=== PATIENT | male | born 1975 | race Caucasian/White ===

== ENCOUNTER 2024-03-28 03:08 | Inpatient (IN) | payer MEDICAID, SELFPAY ==
[2024-03-28] VITALS (24 sets, daily range): BP systolic 104–131; BP diastolic 64–109; PULSE 51–103; RESP 12–23; TEMP 36.3–36.6; O2SAT 90–100; BMI 37.1
--- NOTE | 2024-03-28 03:15 | XRR_ITS ---
PROCEDURE INFORMATION: Exam: XR Chest Exam date and time: 03/28/2024 3:26 AM Age: 48 years old Clinical indication: Pain; Cough and shortness of breath; Chest pressure; Patient HX: C/O chest discomfort with cougn and SOB. Bilateral lower ext swelling. ; Additional info: Cp TECHNIQUE: Imaging protocol: Radiologic exam of the chest. Views: 1 view. COMPARISON: CR XR ribs BI mn 4V w [id number] [id number] 03/23/2020 12:02 PM FINDINGS: Lungs: Right basilar opacity, likely a combination of atelectasis and infection. The left lung is clear. Pleural spaces: Large right pleural effusion. Heart/Mediastinum: No cardiomegaly. Bones/joints: Unremarkable. XR/XR chest 1V portable [id number] IMPRESSION: 1. Large right pleural effusion. 2. Right basilar opacity, likely a combination of atelectasis and infection.
--- NOTE | 2024-03-28 03:18 | ECG_ITS ---
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 Measurements Intervals [place] Rate: 95 P: 79 MI: 180 QRS: 110 QRSD: 83 T: 10 QT: 366 QTc: 462 Interpretive Statements SINUS RHYTHM POSSIBLE RIGHT VENTRICULAR HYPERTROPHY [SOME/ALL OF: PROMINENT R IN V1, LATE TRANSITION, RAD, LANG, SSS] ANTEROSEPTAL MYOCARDIAL INFARCTION , OF INDETERMINATE AGE [40+ ms Q WAVE IN V1-V4] No previous ECG available for comparison Electronically Signed On 03-28-2024 22:33:17 EMERGENCY SPECIALIST by Dominique Nielson M.D. [email or web address]
--- NOTE | 2024-03-28 03:24 | W.ED.SOB ---
HPI - SOB/Dyspnea General: Chief Complaint: Shortness of Breath/Dyspnea Stated Complaint: SOB feet extremly swollen Time Seen by Provider: 03/28/24 03:11 History of Present Illness: HPI Narrative: Patient presents to the ER with worsening shortness of breath, newly diagnosed CHF as of this year, is on Bumex 2 mg twice a day, Lasix 40 mg daily along with potassium supplementation. Patient has been managed by his family practice doctor is never seen a real estate underwriter nor had an echocardiogram. Patient has been going downhill for several weeks but just got extremely short of breath tonight where he could not lay flat and had a hard time catching his breath while he was even sitting up. Patient also states he has bilateral lower extremity edema but it has been worse than it is currently. Patient denies any chest pain. 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 He is also drinks a lot of alcohol per family Related Data Home Medications Medication Instructions Recorded Confirmed bumetanide 2 mg tablet 2 mg PO BID 03/28/24 03/28/24 carvedilol 6.25 mg tablet 6.25 mg PO BID 03/28/24 03/28/24 furosemide 40 mg tablet (Lasix) 40 mg PO QAM 03/28/24 03/28/24 potassium chloride 10 mEq 10 meq PO DAILY 03/28/24 03/28/24 tablet,extended release Allergies Allergy/AdvReac Type Severity Reaction Status Date / Time No Known Allergies Allergy Verified 03/28/24 04:15 Review of Systems General: Reports: 10 or more systems reviewed and unremarkable except in HPI and below PFSH ED PFSH: Medical History (Updated 03/28/24 @ 16:28 by Tamika Rodas MD) CHF (congestive heart failure) Family History (Updated 03/28/24 @ 05:42 by Wilda Mera MD) Other CAD (coronary artery disease) Social History (Updated 03/28/24 @ 05:43 by Wilda Mera MD) Smoking and tobacco/nicotine status: current every day tobacco/nicotine user Alcohol intake: current Physical Exam Const: COMMON NORMALS: no acute distress, average body habitus, patient oriented x3, no limitations, healthy appearing, alert and well nourished HENMT: COMMON NORMALS: normocephalic, atraumatic, hearing grossly normal bilaterally, external ears normal, Normal external nose present and moist oral mucous membranes HEAD & SCALP: normocephalic and atraumatic NOSE: Normal external nose present EXTERNAL EAR: Yes external ears normal Neck/C-Spine: COMMON NORMALS: full ROM, no lymphadenopathy, supple, no meningeal signs, no JVD and Thyroid normal THYROID: Thyroid normal Chest: COMMONS NORMALS: normal inspection of the chest and normal palpation of entire chest wall Resp: COMMON NORMALS: normal respiratory effort, No retractions and No use of accessory muscles; negative for clear to auscultation bilaterally (Decreased breath sounds bilaterally) AUSCULTATION: not clear to auscultation bilaterally (Decreased breath sounds bilaterally) Cardio: COMMON NORMALS: no JVD, regular rate, regular rhythm, S1 normal heart sound present, S2 normal heart sound present, No gallops present (Cardio), No clicks present (Cardio), No murmurs present (Cardio) and No rub (Cardio) RATE: regular rate RHYTHM: regular rhythm HEART SOUNDS: S1 normal heart sound present and S2 normal heart sound present GI: COMMON NORMALS: Normal to inspection, nondistended, normoactive bowel sounds present, Soft to palpation, non-tender, No hepatosplenomegaly present and no masses PALPATION: Yes Soft to palpation and Yes No hepatosplenomegaly present Extremity: NARRATIVE EXTREMITY EXAM: 1+ pitting edema bilateral lower extremities Neuro: COMMON NORMALS: patient oriented x3 SENSORIUM/ORIENTATION: Yes alert MENINGEAL SIGNS: Yes no meningeal signs Course Vital Signs: Vital signs: Vital Signs Temperature 97.8 F 04/01/24 08:18 Pulse Rate 113 H 04/01/24 09:02 Respiratory Rate 18 04/01/24 09:02 Blood Pressure 115/82 04/01/24 08:18 Pulse Oximetry 97 04/01/24 09:02 Oxygen Delivery Me thod Nasal Cannula 04/01/24 09:02 Oxygen Flow Rate 2 04/01/24 09:02 Fraction of Inspir ed Oxygen 3.5 03/28/24 08:37 MDM - SOB/Dyspnea Medical Decision Making Chest x-ray showed a right large pleural effusion with right basilar opacity, chest abdomen pelvis CT scan with contrast showed no PE, large right pleural effusion with mild pulmonary edema, with near complete collapse of right lower middle lobes. CBC and ABG was essentially unremarkable, patient's BUN/creatinine is 43 and 1.6, phosphorus and magnesium total bilirubin 5.3, 2.6, 2.7, proBNP 11,400, ethyl alcohol less than 10. These results was discussed with the patient and family members. Patient will be placed inpatient for further evaluation and treatment. Dr. Mera consulted and agreed with admission and treatment. Lab Data 04/01/24 05:40 04/01/24 05:40 Labs/Radiology: Radiology Impressions Chest/Abdomen/Pelvis CT 03/28/24 04:20 IMPRESSION: 1. No pulmonary embolism. 2. Large right pleural effusion with mild pulmonary edema. 3. Near complete collapse of the right lower and middle lobes. IMPRESSION: Cirrhotic liver morphology with sequela of portal hypertension including splenomegaly and moderate volume ascites. Paracentesis Ultrasound 03/29/24 06:00 IMPRESSION: Uncomplicated paracentesis yielding 3000 ml of peritoneal fluid. Thoracentesis Ultrasound 03/31/24 07:00 IMPRESSION: 1. Uncomplicated ultrasound-guided RIGHT thoracentesis. 2. Removal of 1000 cc 3. No pneumothorax on the post thoracentesis radiograph Chest X-Ray 03/31/24 14:45 IMPRESSION: 1. No pneumothorax post RIGHT thoracentesis. Improved RIGHT pleural effusion. 2. Persistent volume loss RIGHT lung with RIGHT lower lobe atelectasis Laboratory Results WBC 8.47 10^3/uL (3.29-11.43) 03/28/24 03:40 RBC 5.83 10^6/uL (3.85-5.65) H 03/28/24 03:40 Hgb 15.90 g/dL (11.27-16.99) 03/28/24 03:40 Hct 51.0 % (37-53) 03/28/24 03:40 MCV 87.5 fl (82-101) 03/28/24 03:40 MCH 27.3 pg (27-33) 03/28/24 03:40 MCHC 31.2 g/dL (30-55) 03/28/24 03:40 RDW 17.8 % (12.1-15.1) H 03/28/24 03:40 Plt Count 332 10^3/cmm (157-399) 03/28/24 03:40 MPV 10.1 fL (7.4-10.4) 03/28/24 03:40 Neut % (Auto) 70.4 % 03/28/24 03:40 Lymph % (Auto) 17.9 % 03/28/24 03:40 Craig % (Auto) 10.0 % 03/28/24 03:40 Eos % (Auto) 0.9 % 03/28/24 03:40 Baso % (Auto) 0.2 % 03/28/24 03:40 Neut # (Auto) 5.95 10^3/uL (1.8-7.7) 03/28/24 03:40 Lymph # (Auto) 1.5 10^3/uL (0.8-4.8) 03/28/24 03:40 Craig # (Auto) 0.9 10^3/uL (0.2-0.9) 03/28/24 03:40 Eos # (Auto) 0.1 10^3/uL (0.0-0.8) 03/28/24 03:40 Baso # (Auto) 0.0 10^3/uL (0.0-0.1) 03/28/24 03:40 Nucleated RBC % (auto) 0 % 03/28/24 03:40 Nucleated RBCs # 0.0 /100WBC 03/28/24 03:40 D-Dimer 5.24 ug/mLFEU (0-0.59) H 03/28/24 03:40 Specimen Type Arterial 03/28/24 05:12 Sample Site Brachial, right 03/28/24 05:12 ABG pH 7.49 (7.35-7.45) H 03/28/24 05:12 ABG pCO2 33.4 mmHg (35-45) L 03/28/24 05:12 ABG pO2 118.0 mmHg (80.0-100.0) H 03/28/24 05:12 ABG HCO3 25.3 mmol/L (22-26) 03/28/24 05:12 ABG O2 Saturation > 99.1 03/28/24 05:12 ABG Base Excess 2.5 mmol/L (-2.0-2.0) H 03/28/24 05:12 Junaid Test N/a 03/28/24 05:12 A-a O2 Gradient Not Reportable 03/28/24 05:12 Hematocrit 47.8 % (42-52) 03/28/24 05:12 Hgb O2 Saturation 97.2 % (95-100) 03/28/24 05:12 Carboxyhemoglobin 1.6 %THgb (0.4-20.1) 03/28/24 05:12 Methemoglobin 0.7 % (0.4-1.5) 03/28/24 05:12 Total Hemoglobin 15.6 g/dL (14-18) 03/28/24 05:12 Sodium 135.0 mmol/L (131-143) 03/28/24 05:12 Potassium 3.9 mmol/L (3.5-5.0) 03/28/24 05:12 Glucose 113.0 mg/dL (70-115) 03/28/24 05:12 Ionized Calcium 1.1 mmol/L (1.1-1.4) 03/28/24 05:12 O2 Delivery Device Nc 03/28/24 05:12 O2 Liters/Min 2.0 % 03/28/24 05:12 Costumer ID Al 03/28/24 05:12 Sodium 140 mmol/L (136-145) 03/28/24 05:57 Potassium 4.9 mmol/L (3.5-5.1) 03/28/24 05:57 Chloride 97 mmol/L (98-107) L 03/28/24 05:57 Carbon Dioxide 26 mmol/L (22-29) 03/28/24 05:57 Anion Gap 21.9 (5-19) H 03/28/24 05:57 BUN 42 mg/dL (6-20) H 03/28/24 05:57 Creatinine 1.4 mg/dL (0.7-1.2) H 03/28/24 05:57 GFR Calculation 54.6 mL/min (90-130) L 03/28/24 05:57 Glucose 107 mg/dL (65-115) 03/28/24 05:57 Calculated Osmolality 301 mOsm/kg (285-295) H 03/28/24 05:57 Lactic Acid 2.1 mmol/L (0.5-2.2) 03/28/24 03:40 Lactic Acid (Sepsis) 3.0 mmol/L (0.5-2.2) H 03/28/24 06:55 Calcium 9.8 mg/dL (8.5-10.5) 03/28/24 05:57 Phosphorus 5.3 mg/dL (2.5-4.5) H 03/28/24 03:40 Magnesium 2.6 mg/dL (1.7-2.3) H 03/28/24 03:40 Total Bilirubin 2.7 mg/dL (0.15-1.2) H 03/28/24 03:40 AST 19 U/L (0-40) 03/28/24 03:40 ALT 22 U/L (0-41) 03/28/24 03:40 Alkaline Phosphatase 174 U/L (40-130) H 03/28/24 03:40 Troponin T Baseline 52 ng/L (0-15) H 03/28/24 03:40 Troponin T 120 Minute 44.13 ng/L (0-15) H 03/28/24 05:57 Delta Troponin T -7.87 ABS# (0-10) L 03/28/24 05:57 Troponin T Hi Sens 6Hr 27.44 ng/L (0-15) H 03/28/24 10:22 Troponin T Hi Sens 6Hr Delta -24.56 ng/L (0-12) L 03/28/24 10:22 NT-Pro-B Natriuret Pep 62623 pg/mL (0-125) H 03/28/24 03:40 NT-Pro-B Natriuret Pep Cancelled 03/28/24 03:40 Total Protein 6.4 g/dL (6.6-8.7) L 03/28/24 03:40 Albumin 3.7 g/dL (3.5-5.2) 03/28/24 03:40 Globulin 2.7 g/dL (1.3-4.6) 03/28/24 03:40 Vitamin B12 1394 pg/mL (232-1245) H 03/28/24 05:57 Procalcitonin 0.20 ng/mL (0-0.5) 03/28/24 03:40 TSH 4.28 uIU/mL (0.27-4.20) H 03/28/24 05:57 Urine Color Yellow (Yellow) 03/28/24 05:36 Urine Appearance Clear (CLEAR) 03/28/24 05:36 Urine pH 5.5 (5-7) 03/28/24 05:36 Ur Specific [place] 1.022 (1.005-1.030) 03/28/24 05:36 Urine Protein Negative (Negative) 03/28/24 05:36 Urine Glucose (UA) Negative (Normal) 03/28/24 05:36 Urine Ketones Negative (Negative) 03/28/24 05:36 Urine Blood Negative (Negative) 03/28/24 05:36 Urine Nitrate Negative (Negative) 03/28/24 05:36 Urine Bilirubin Negative (Negative) 03/28/24 05:36 Urine Urobilinogen 1.0 mg/dL (Negative) 03/28/24 05:36 Ur Leukocyte Esterase Negative (Negative) 03/28/24 05:36 Urine RBC 0-4 /hpf (0-2) H 03/28/24 05:36 Urine WBC 0-4 /hpf (0-5) H 03/28/24 05:36 Ur Squamous Epith Cells 0-4 /hpf (0-5) H 03/28/24 05:36 Amorphous Sediment Not Reportable 03/28/24 05:36 Urine Bacteria Trace /hpf (NONE) 03/28/24 05:36 Urine Opiates Screen Negative ng/mL (Negative) 03/28/24 05:36 Ur Barbiturates Screen Negative ng/mL (Negative) 03/28/24 05:36 Ur Phencyclidine Scrn Negative ng/mL (Negative) 03/28/24 05:36 Ur Amphetamines Screen Positive ng/mL (Negative) H 03/28/24 05:36 U Benzodiazepines Scrn Negative ng/mL (Negative) 03/28/24 05:36 Urine Cocaine Screen Negative ng/mL (Negative) 03/28/24 05:36 U Marijuana (THC) Screen Negative ng/mL (Negative) 03/28/24 05:36 Ethyl Alcohol < 10 mg/dL (0-10) 03/28/24 03:40 All radiology interpretation(s) finalized by discharge Discharge Plan Discharge Patient Disposition: Admitted As Inpatient Admit Provider: Wilda Mera Clinical Impression: Pleural effusion on right, CHF (congestive heart failure), Acute hypoxic respiratory failure, Acute kidney insufficiency Condition: Stable Coding Level of Care Code ED Director Of [employer] for [place]
[2024-03-28 03:47] LABS: Basophils % 0.2 %; Eosinophils # 0.1 10^3/uL (0.0-0.8); Eosinophils % 0.9 %; Lymphocytes # 1.5 10^3/uL (0.8-4.8); Lymphocytes % 17.9 %; Mean Corpuscular HGB Conc 31.2 g/dL (30-55); Mean Corpuscular Hemoglobin 27.3 pg (27-33); Mean Corpuscular Volume 87.5 fl (82-101); Mean Platelet Volume 10.1 fL (7.4-10.4); Monocytes # 0.9 10^3/uL (0.2-0.9); Neutrophils # 5.95 10^3/uL (1.8-7.7); Neutrophils % 70.4 %; Nucleated Red Blood Cells % 0 %; Platelet Count 332 10^3/cmm (157-399); Red Blood Count 5.83 10^6/uL (3.85-5.65); Red Cell Distribution Width 17.8 % (12.1-15.1); White Blood Count 8.47 10^3/uL (3.29-11.43)
[2024-03-28 04:10] LABS: Troponin(5th) Baseline 52 ng/L (0-15)
[2024-03-28 04:13] LABS: D Dimer 5.24 ug/mLFEU (0-0.59)
[2024-03-28 04:18] LABS: Alanine Aminotransferase 22 U/L (0-41); Albumin Level 3.7 g/dL (3.5-5.2); Alcohol Level < 10 mg/dL (0-10); Alkaline Phosphatase 174 U/L (40-130); Anion Gap 17.9 (5-19); Aspartate Amino Transferase 19 U/L (0-40); Blood Urea Nitrogen 43 mg/dL (6-20); Calcium 9.8 mg/dL (8.5-10.5); Carbon Dioxide 28 mmol/L (22-29); Chloride 95 mmol/L (98-107); Globulin 2.7 g/dL (1.3-4.6); Glomerular Filtration Rate 46.8 mL/min (90-130); Glucose 121 mg/dL (65-115); Magnesium 2.6 mg/dL (1.7-2.3); NT Pro B Type Natriuretic Pept 11400 pg/mL (0-125); Osmolality Calculated 294 mOsm/kg (285-295); Phosphorus 5.3 mg/dL (2.5-4.5); Potassium 4.9 mmol/L (3.5-5.1); Sodium 136 mmol/L (136-145); Total Bilirubin 2.7 mg/dL (0.15-1.2); Total Protein 6.4 g/dL (6.6-8.7)
--- NOTE | 2024-03-28 04:20 | CTR_ITS ---
PROCEDURE INFORMATION: Exam: CTA Chest With Contrast Exam date and time: 03/28/2024 4:27 AM Age: 48 years old Clinical indication: Abnormal findings; Abnormal lab test; Abnormal kidney function lab tests; Bloating; Abnormal diagnostic tests; Elevated d-dimer; Cough and shortness of breath; Patient HX: Cough with SOB and dimer of 5.24. RT pleural effusion. Willem with abd distention. ; Additional info: Shortness of breath, tachypnea, elevated d-dimer, ascites TECHNIQUE: Imaging protocol: Computed tomographic angiography of the chest with contrast. Exam focused on the arteries. 3D rendering (Not supervised by radiologist): MIP and/or 3D reconstructed images were created by the technologist. Radiation optimization: All CT scans at this facility use at least one of these dose optimization techniques: automated exposure control; mA and/or kV adjustment per patient size (includes targeted exams where dose is matched to clinical indication); or iterative reconstruction. Contrast material: OMNI 350; Contrast volume: 100 ml; Contrast route: INTRAVENOUS (IV); COMPARISON: CR (CHEST, ) 03/28/2024 3:26 AM RADIATION DOSE METRICS: Total DLP (mGy-cm): 1640.94 FINDINGS: Pulmonary arteries: Normal. No pulmonary emboli. Aorta: Unremarkable. No aortic aneurysm. No aortic dissection. Lungs: Near complete collapse of the right lower and middle lobes. Bilateral ground-glass opacities suggestive of edema. No focal consolidation. Pleural spaces: Large right pleural effusion. Heart: Cardiomegaly. Lymph nodes: Unremarkable. No enlarged lymph nodes. Bones/joints: Unremarkable. No acute fracture. Soft tissues: Unremarkable. PROCEDURE INFORMATION: Exam: CT Abdomen And Pelvis With Contrast Exam date and time: 03/28/2024 4:27 AM Age: 48 years old Clinical indication: Abnormal findings; Abnormal lab test; Abnormal kidney function lab tests; Bloating; Abnormal diagnostic tests; Elevated d-dimer; Cough and shortness of breath; Patient HX: Cough with SOB and dimer of 5.24. RT pleural effusion. Willem with abd distention. ; Additional info: Shortness of breath, tachypnea, elevated d-dimer, ascites TECHNIQUE: Imaging protocol: Computed tomography of the abdomen and pelvis with contrast. Radiation optimization: All CT scans at this facility use at least one of these dose optimization techniques: automated exposure control; mA and/or kV adjustment per patient size (includes targeted exams where dose is matched to clinical indication); or iterative reconstruction. Contrast material: OMNI 350; Contrast volume: 100 ml; Contrast route: INTRAVENOUS (IV); COMPARISON: CR (CHEST, ) 03/28/2024 3:26 AM RADIATION DOSE METRICS: Total DLP (mGy-cm): 1640.94 FINDINGS: Liver: Mildly nodular hepatic contour, suggestive of cirrhosis. Gallbladder and biliary ducts: No calcified stones or ductal dilation. Pancreas: No ductal dilation. Spleen: Splenomegaly measuring 15.2 cm. Adrenal glands: Unremarkable. Kidneys and ureters: No hydronephrosis. Stomach and bowel: No obstruction. No mucosal thickening. Appendix: No evidence of appendicitis. Intraperitoneal space: Moderate volume ascites. Vasculature: Unremarkable. Lymph nodes: No enlarged lymph nodes. Urinary bladder: Unremarkable as visualized. Reproductive: Unremarkable as visualized. Bones/joints: Unremarkable. No acute fracture. Soft tissues: Moderate body wall edema. CT/CT angio chest w abd pel w con IMPRESSION: 1. No pulmonary embolism. 2. Large right pleural effusion with mild pulmonary edema. 3. Near complete collapse of the right lower and middle lobes. IMPRESSION: Cirrhotic liver morphology with sequela of portal hypertension including splenomegaly and moderate volume ascites.
--- NOTE | 2024-03-28 04:21 | USCV_ITS ---
Alfred Spencer Age: 48 Gender: M : 1975 Exam Date: 03/28/2024 09:28 Ordering Phys: Wilda Mera MD Technologist: Urban Elaine [place] [facility] [place]: chf BP: 116 / 83 HR: 89 Rhythm: Sinus Technical Quality: Adequate MEASUREMENTS (Male / Female) Normal Values 2D ECHO LV Diastolic Diameter PLAX 5.5 cm 4.2 - 5.9 / 3.9 - 5.3 cm IVS Diastolic Thickness 1.3 cm 0.6 - 1.0 / 0.6 - 0.9 cm IVS Systolic Thickness 1.4 cm LVPW Diastolic Thickness 1.3 cm 0.6 - 1.0 / 0.6 - 0.9 cm LVPW Systolic Thickness 1.7 cm LVOT Diameter 2.1 cm LV Ejection Fraction 2D Teich 23.4 % LV Ejection Fraction MOD 4C 30.5 % LV Ejection Fraction MOD 2C 21.1 % LV Ejection Fraction 2C AL 21.4 % LA Diameter 4.4 cm RA Systolic Volume 4C AL 77.0 ml RA Systolic Volume 4C MOD 78.0 ml LA Sys Volume AL 91.2 cm cubed LA Sys Volume Index AL 35.0 cm cubed/m squared Aorta at Sinotubular Diameter 1.9 cm IVC Diameter 2.0 cm M-MODE LA Ao Ratio MM 1.7 AV Cusp Separation MM 2.1 cm DOPPLER AV Peak Velocity 125.0 cm/s LVOT Peak Velocity 79.0 cm/s AV Area Cont Eq vti 1.8 cm squared AV Area Cont Eq pk 2.2 cm squared MV Peak Velocity 114.0 cm/s MV Area PHT 8.2 cm squared Mitral E to A Ratio 1.9 TV Peak Velocity 253.0 cm/s TR Peak Velocity 265.5 cm/s TR Peak Gradient 28.2 mmHg TR Mean Velocity 199.0 cm/s TR Mean Gradient 17.8 mmHg TR Velocity Time Integral 69.9 cm PV Peak Velocity 75.0 cm/s RV Ejection Time 0.3 s FINDINGS Left Ventricle Severe diffuse hypokinesia of the left ventricle with an ejection fraction of 25%. Moderately dilated LV cavity Right Ventricle Normal right ventricular size and systolic function. Right Atrium Moderately increased right atrial size. Left Atrium Mildly increased left atrial size. Mitral Valve Moderate mitral valve regurgitation. Aortic Valve Thickened aortic valve. Tricuspid Valve Moderate tricuspid valve regurgitation. The pulmonary artery pressure estimated to be in the normal range. However this could be misleading because of poor Doppler signals. Pulmonic Valve Pulmonic valve not well visualized. Pericardium No pericardial effusion. Aorta Normal aortic annulus size. IVC Mildly dilated IVC. CONCLUSIONS Severe diffuse hypokinesia of the left ventricle with an ejection fraction of 25%. Moderately dilated LV cavity. Moderate biatrial enlargement. Moderate mitral valve regurgitation. Thickened aortic valve. Moderate tricuspid valve regurgitation. The pulmonary artery pressure estimated to be in the normal range. However this could be misleading because of poor Doppler signals. There is no pericardial effusion. No similar previous studies are available for comparison Dr Dominique Nielson MD [facility] (Electronically Signed) Final Date: 28 March 2024 19:17 S
[2024-03-28] MEDS: iohexol 350 mg/mL 500 mL Btl (per mL) IV (04:40)
[2024-03-28] MEDS: FUROsemide 10 mg/mL SDV 10mL 60 MG IVP (04:45)
[2024-03-28] MEDS: heparin 5,000 unit/mL INJ 1 mL 5000 UNIT SUBCUT ×2 (04:47→16:52)
[2024-03-28 05:16] LABS: Lactic Sepsis W/Reflex 2.1 mmol/L (0.5-2.2)
[2024-03-28 05:24] LABS: ABG PCO2 33.4 mmHg (35-45); ABG PH Result 7.49 (7.35-7.45); Arterial Blood Gas Hematocrit 47.8 % (42-52); Base Excess ABG 2.5 mmol/L (-2.0-2.0); Blood Gas Operator Identificat SAM; Blood Gas Sample Site Brachial, right; Blood Gas Sample Type Arterial; Carboxyhemoglobin 1.6 %THgb (0.4-20.1); HCO3 ABG 25.3 mmol/L (22-26); HGB O2 Sat 97.2 % (95-100); Ionized Calcium Level - ABG 1.1 mmol/L (1.1-1.4); Methemoglobin 0.7 % (0.4-1.5); Oxygen Device NC; Oxygen Saturation ABG > 99.1; Potassium Level - ABG 3.9 mmol/L (3.5-5.0); Total Hemoglobin 15.6 g/dL (14-18)
--- NOTE | 2024-03-28 05:38 | P.HP_ITS ---
Providers/Chief Complaint 2 Primary Care Provider: RICHARD Guzman Chief Complaint: SOB feet extreamly swollen History of Present Illness Alfred Spencer is a 48 year old male With recent diagnosis of CHF, has been taking Lasix without any good response, started taking Bumex, has history of alcoholism, smoking cigars, not endorsing rigors from drugs, presented with worsening orthopnea PND weight gain and shortness of breath. Patient is not endorsing any chest pain, nausea, vomiting. He is endorsing severe shortness of breath at rest and on exertion. He has gained at least 30 pounds. Last alcohol drink was on this Friday when he was playing pool. Patient is stating that he was drinking heavily 8 beers a day with 1 pint of whiskey that he was finishing a week. Never had an angiogram no family history of coronary disease SC or CHF. Review of Systems 2 Const: Denies: fever(s) Eyes: Denies: change in vision ENMT: Denies: throat pain Card: Reports: swelling of feet/ankles; Denies: chest pain Resp: Reports: dyspnea GI: Reports: nausea; Denies: abdominal pain Medications/Allergies Allergies Allergy/AdvReac Type Severity Reaction Status Date / Time No Known Allergies Allergy Verified 03/28/24 04:15 PFSH Acute 2 PFSH: Medical History (Updated 03/28/24 @ 05:42 by Wilda Mera MD) CHF (congestive heart failure) Family History (Updated 03/28/24 @ 05:42 by Wilda Mera MD) Other CAD (coronary artery disease) Social History (Updated 03/28/24 @ 05:43 by Wilda Mera MD) Smoking and tobacco/nicotine status: current every day tobacco/nicotine user Alcohol intake: current Vitals/I&O/Wt Last Vital Signs Temp 97.4 F L 03/28/24 03:49 Pulse 91 03/28/24 04:15 Resp 16 03/28/24 04:15 BP 107/89 03/28/24 04:30 Pulse Ox 94 03/28/24 04:15 O2 Del Method Nasal Cannula 03/28/24 03:45 O2 Flow Rate 2 03/28/24 03:45 Weight last 48 hrs Weight 122.924 kg Physical Exam 2 Narrative: Sign of fluid overload Anasarca GCS 15 Currently on 2 L Hypertensive Distended abdomen No send with 3+ edema Lower extremities are cool to touch S1, S2 No acute chest pain Endorsing orthopnea PND No audible stridor or wheezing Positive sign of fluid overload Data 03/28/24 03:40 03/28/24 03:40 A&P Assessment and plan (1) CHF (congestive heart failure): Qualifiers: Heart failure chronicity: acute Heart failure type: unspecified Qualified Code(s): I50.9 - Heart failure, unspecified (2) Acute kidney insufficiency: (3) Pleural effusion on right: (4) Acute hypoxic respiratory failure: Plan New onset of CHF Patient will need an angiogram once he is euvolemic This seems to be induced by alcohol, not endorsing history of methamphetamine or cocaine Will check drug screen check TSH and B12 Patient will need outpatient cardiology follow-up as well I will start him on high-dose of Bumex 2 mg IV every 8 hours with BMP every 12 hours and potassium supplementation Acute hypoxia related to CHF Pleural effusion A-fib close patient has not improved with diuresis he may need thoracentesis Hypertension: Patient will need optimization of antihypertensive regimen Full code Cardiac diet DVT prophylaxis: Heparin Abnormal D-dimer CT chest ruled out PE Attestations 2 Medical Necessity Statement*: Anticipating discharge within 48 hours Diagnoses CHF (congestive heart failure) I50.9 Heart failure chronicity: acute Heart failure type: unspecified Acute kidney insufficiency N28.9 Pleural effusion on right J90 Acute hypoxic respiratory failure J96.01
[2024-03-28 06:21] LABS: Troponin 5 2HR 44.13 ng/L (0-15)
[2024-03-28 06:23] LABS: Amphetamines Screen Urine Positive (Negative); Barbiturates Screen Urine Negative (Negative); Benzodiazepines Screen Urine Negative (Negative); Cocaine Screen Urine Negative (Negative); Opiate Screen Urine Negative (Negative); PCP Screen Urine Negative (Negative); THC Screen Urine Negative (Negative)
[2024-03-28 06:31] LABS: Troponin 5 2HR Delta -7.87 ABS# (0-10)
[2024-03-28 06:36] LABS: Bilirubin Urine Negative (Negative); Blood Urine Negative (Negative); Glucose Urine UA Negative (Normal); Ketones Urine Negative (Negative); Leukocyte Esterase Urine Negative (Negative); Nitrate Urine Negative (Negative); Protein Urine Negative (Negative); Specific Gravity, Urine 1.022 (1.005-1.030); Urine Appearance Clear (CLEAR); Urine Color Yellow (Yellow); pH Urine 5.5 (5-7)
[2024-03-28 06:43] LABS: Anion Gap 21.9 (5-19); Blood Urea Nitrogen 42 mg/dL (6-20); Calcium 9.8 mg/dL (8.5-10.5); Carbon Dioxide 26 mmol/L (22-29); Chloride 97 mmol/L (98-107); Glomerular Filtration Rate 54.6 mL/min (90-130); Glucose 107 mg/dL (65-115); Osmolality Calculated 301 mOsm/kg (285-295); Potassium 4.9 mmol/L (3.5-5.1); Sodium 140 mmol/L (136-145); Thyroid Stimulating Hormone 4.28 uIU/mL (0.27-4.20); Vitamin B12 1394 pg/mL (232-1245)
[2024-03-28 06:46] LABS: Add Urine Microscopic? YES; Bacteria Urine TRACE /hpf; RBC Urine 0-4 /hpf (0-2); Squamous Epithelial Cell Urine 0-4 /hpf (0-5); UA Manual Slide Review YES; WBC Urine 0-4 /hpf (0-5)
[2024-03-28 06:47] LABS: Reflex Lactate Order REFLEX LACTIC ORDERD
--- NOTE | 2024-03-28 07:15 | PC.NURSE ---
Report called to medical facilities section director Debbie at 0715 by this nurse.
--- NOTE | 2024-03-28 07:30 | PC.PHAR ---
Pt states sister Radha takes care of his medications. She was here with them but took with her when she left. She is not answering her phone currently. Pt states takes Carvedilol, Potassium Chloride, Lasix, Bumetanide, and something for cough. Will follow up with drug strength and dosage as soon as I make contact with Radha.
[2024-03-28] MEDS: potassium chloride ER 20 mEq Tablet 40 MEQ PO (09:14)
[2024-03-28] MEDS: sennosides-docusate Tablet 1 TAB PO (09:15)
--- NOTE | 2024-03-28 09:19 | ECG_ITS ---
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 Measurements Intervals [place] Rate: 89 P: 70 HI: 181 QRS: 99 QRSD: 89 T: -64 QT: 364 QTc: 444 Interpretive Statements SINUS RHYTHM LEFT ATRIAL ENLARGEMENT [-0.15mV P-WAVE IN V1/V2] BORDERLINE RIGHT AXIS DEVIATION [QRS AXIS > 90] ANTEROSEPTAL MYOCARDIAL INFARCTION , OF INDETERMINATE AGE [40+ ms Q WAVE IN V1-V4] Compared to ECG 03/28/2024 03:18:02 No significant changes Electronically Signed On 03-28-2024 22:41:51 RIFLE CASE REPAIRER by Dominique Nielson M.D. [email or web address]
[2024-03-28 11:00] LABS: Troponin 5 6HR 27.44 ng/L (0-15)
[2024-03-28 11:01] LABS: Troponin 5 6HR Delta -24.56 ng/L (0-12)
[2024-03-28] MEDS: bumetanide 0.25 mg/mL SDV 4 mL 2 MG IVP ×2 (14:09→21:11)
--- NOTE | 2024-03-28 14:56 | PC.NURSE ---
upon assessing patient, Scotum is really swollen. Patient stated scrotum has been swollen for a week.
--- NOTE | 2024-03-28 16:25 | P.PN_ITS ---
Subjective 2 Subjective: Patient is surprised to learn that has cirrhosis. States that he stopped drinking 1 week ago. States that he has been feeling poorly over the last 2 to 3 months. He has had increasing anasarca, which started initially with lower extremity swelling. He borrowed water pills from his friends and initially did okay, however over the last 2 to 3 weeks he continued to have persistent swelling with therefore visited with primary care physician to get a prescription. He was diagnosed with CHF presumptively. Has not had an echocardiogram to date. CT of the abdomen and pelvis here today is showing liver cirrhosis. Medications: Reviewed: Yes Vitals/I&O/Wt Last Vital Signs Temp 97.8 F 03/28/24 16:03 Pulse 103 H 03/28/24 16:03 Resp 18 03/28/24 16:03 BP 119/64 03/28/24 16:03 Pulse Ox 99 03/28/24 16:03 O2 Del Method Nasal Cannula 03/28/24 16:03 O2 Flow Rate 2 03/28/24 03:45 FiO2 3.5 03/28/24 08:37 03/28/24 03/28/24 03/28/24 06:59 14:59 22:59 Intake Total 1200 / 1200 Output Total 150 / 150 Balance 1200 / 1200 -150 / 1050 Weight last 48 hrs Weight 127.658 kg Weight 122.924 kg Physical Exam 2 Narrative: General: No acute distress, AO x3 HEENT: PERRLA, pupils bilaterally equal and reactive, pallors not present Chest: Reduced air entry onto the right lung. CVS: S1-S2 regular, no murmurs, no tachycardia, no gallops, no rubs Abdomen: Soft, nontender, no organomegaly, bowel sounds present Neuro: No focal deficits, no facial deformity, AO x3, power 5/5 in all limbs Extremities: Generalized anasarca Data 03/28/24 03:40 03/28/24 05:57 Micro: Microbiology 03/28/24 05:57 Blood Culture - Preliminary Blood SPECIMEN COLLECTED 03/28/24 05:57 Blood Culture - Preliminary Blood SPECIMEN COLLECTED Other data: CT/CT angio chest w abd pel w con IMPRESSION: 1. No pulmonary embolism. 2. Large right pleural effusion with mild pulmonary edema. 3. Near complete collapse of the right lower and middle lobes. IMPRESSION: Cirrhotic liver morphology with sequela of portal hypertension including splenomegaly and moderate volume ascites. A&P Assessment and plan (1) Acute kidney insufficiency: (2) Pleural effusion on right: (3) Acute hypoxic respiratory failure: (4) Liver cirrhosis: (5) Anasarca: Plan New onset of CHF Patient will need an angiogram once he is euvolemic This seems to be induced by alcohol, not endorsing history of methamphetamine or cocaine Will check drug screen check TSH and B12 Patient will need outpatient cardiology follow-up as well I will start him on high-dose of Bumex 2 mg IV every 8 hours with BMP every 12 hours and potassium supplementation Acute hypoxia related to CHF Pleural effusion A-fib close patient has not improved with diuresis he may need thoracentesis Hypertension: Patient will need optimization of antihypertensive regimen Full code Cardiac diet DVT prophylaxis: Heparin Abnormal D-dimer CT chest ruled out PE 03/28/2024 Patient presenting with anasarca of the last 2 to 3 months, more acutely worsened over the past 2 to 3 weeks. Presumptively he has received a diagnosis of CHF, however has not been specifically investigated for the same. Echocardiogram has been taken, results remain pending. CT of the abdomen and pelvis showing liver cirrhosis which might be the more likely etiology of his anasarca. Signs of portal hypertension noted. He has moderate ascites, right- sided pleural effusion. Currently on diuresis with Bumex 2 mg IV every 8 hours. Has had poor urine output so far, bladder scan is showing retention of [address] James catheter to enable accurate PAYAL measurement, for urinary retention. Ultrasound-guided paracentesis ordered for tomorrow. Labs including cell count, body fluid albumin and protein ordered to assess for etiology. May additionally require thoracentesis if effusion fails to improve after paracentesis. Etiology of liver cirrhosis may be related to chronic alcohol abuse. Patient states he quit drinking 1 week ago. Ethyl alcohol level is negative from 03/28/2024. Urine amphetamine screen is positive, he denies sharing needles. Will check hepatitis B and C screening. Patient consents for additional HIV testing. REGINALD panel to assess for possibly autoimmune hepatitis. UA negative for proteinuria. Continue supplemental O2 at 2 L/min to maintain sats greater than 92% Attestations 2 Medical Necessity Statement*: Changed to inpatient admission. He will require greater than 2 midnight stay for IV diuresis, improvement in anasarca, paracentesis, pending echo Coding Level of Care Code Acute Code for Chg Fwd High MDM includes number and complexity of problems actively addressed during encounter, amount and/or complexity of data reviewed/ordered and described risk of complication, morbidity or mortality of management as documented Diagnoses Acute kidney insufficiency N28.9 Pleural effusion on right J90 Acute hypoxic respiratory failure J96.01 Liver cirrhosis K74.60 Anasarca R60.1
[2024-03-28] MEDS: LORazepam 2 mg/mL INJ 1 mL IVP (17:27)
--- NOTE | 2024-03-28 17:33 | PC.NURSE ---
Patient family member brought in wallet. Wallet contains a 100 dollar bill. Wallet placed in pixis in a bag with patients name.
[2024-03-28 19:22] LABS: Anion Gap 18.2 (5-19); Blood Urea Nitrogen 40 mg/dL (6-20); Calcium 9.2 mg/dL (8.5-10.5); Carbon Dioxide 28 mmol/L (22-29); Chloride 97 mmol/L (98-107); Creatinine Clr Calc Pharmacy 107.7118; Glomerular Filtration Rate 65.2 mL/min (90-130); Glucose 153 mg/dL (65-115); Osmolality Calculated 301 mOsm/kg (285-295); Potassium 4.2 mmol/L (3.5-5.1); Sodium 139 mmol/L (136-145)
[2024-03-29] VITALS (8 sets, daily range): BP systolic 109–151; BP diastolic 69–89; PULSE 87–111; RESP 15–21; TEMP 36.4–37.1; O2SAT 90–99
[2024-03-29] MEDS: bumetanide 0.25 mg/mL SDV 4 mL 2 MG IVP ×3 (05:20→22:31)
[2024-03-29] MEDS: heparin 5,000 unit/mL INJ 1 mL 5000 UNIT SUBCUT ×2 (05:20→19:56)
--- NOTE | 2024-03-29 06:00 | US_ITS ---
WS: [id number] ULTRASOUND-GUIDED THERAPEUTIC AND DIAGNOSTIC PARACENTESIS Procedure, risks, and complications have been explained to the patient. Consent is obtained. Utilizing aseptic technique and 1% buffered lidocaine, a small dermatome was made through which a 5 F rench Yueh catheter was inserted. Approximately 3000 ml of dark yellow peritoneal fluid was obtained without difficulty. No complications encountered. US/US paracentesis abd w [id number] IMPRESSION: Uncomplicated paracentesis yielding 3000 ml of peritoneal fluid.
[2024-03-29 06:32] LABS: Basophils % 0.4 %; Eosinophils # 0.1 10^3/uL (0.0-0.8); Eosinophils % 0.9 %; Hematocrit 48.8 % (37-53); Lymphocytes # 1.3 10^3/uL (0.8-4.8); Lymphocytes % 14.6 %; Mean Corpuscular HGB Conc 31.6 g/dL (30-55); Mean Corpuscular Hemoglobin 27.7 pg (27-33); Mean Corpuscular Volume 87.8 fl (82-101); Monocytes % 11.2 %; Neutrophils # 6.21 10^3/uL (1.8-7.7); Neutrophils % 72.4 %; Nucleated Red Blood Cells % 0 %; Platelet Count 272 10^3/cmm (157-399); Red Blood Count 5.56 10^6/uL (3.85-5.65); Red Cell Distribution Width 17.8 % (12.1-15.1); White Blood Count 8.57 10^3/uL (3.29-11.43)
[2024-03-29 06:52] LABS: Anion Gap 15.8 (5-19); Blood Urea Nitrogen 33 mg/dL (6-20); Calcium 8.8 mg/dL (8.5-10.5); Carbon Dioxide 27 mmol/L (22-29); Chloride 98 mmol/L (98-107); Creatinine Clr Calc Pharmacy 107.6252; Glomerular Filtration Rate 65.2 mL/min (90-130); Glucose 128 mg/dL (65-115); Magnesium 2.6 mg/dL (1.7-2.3); Osmolality Calculated 293 mOsm/kg (285-295); Potassium 3.8 mmol/L (3.5-5.1); Sodium 137 mmol/L (136-145)
[2024-03-29 07:13] LABS: Hepatitis A Antibody IgM Non-Reactive (Nonreactive); Hepatitis B Core AB, Total Non-Reactive (Nonreactive); Hepatitis B Surface AB < 3.5 (11.5-1000); Hepatitis B Surface Antigen Non-Reactive (Nonreactive); Hepatitis C Virus Antibody Non-Reactive (Nonreactive)
[2024-03-29 07:47] LABS: INR 1.32 (0.8-1.2)
[2024-03-29 08:26] LABS: HIV 1 & 2 Antibody Non-Reactive (Non-Reactiv); HIV 1 & 2 Antigen Non-Reactive (Non-Reactiv)
[2024-03-29] MEDS: potassium chloride ER 20 mEq Tablet 40 MEQ PO (09:29)
[2024-03-29] MEDS: multivitamin therapeutic Tablet 1 TAB PO (09:29)
[2024-03-29] MEDS: sennosides-docusate Tablet 1 TAB PO (09:29)
[2024-03-29] MEDS: thiamine 100 mg Tablet PO (09:29)
[2024-03-29] MEDS: folic acid 1 mg Tablet PO (09:29)
--- NOTE | 2024-03-29 14:52 | PC.NURSE ---
3 Liters were drained during a paracentesis on patient.
--- NOTE | 2024-03-29 15:39 | P.PN_ITS ---
Subjective 2 Subjective: Patient underwent paracentesis with removal of 3 L of fluid from the peritoneal cavity. Labs are currently pending. Lower extremity edema slightly improved over previous. Net -500 cc last 24 hours. Medications: Reviewed: Yes Vitals/I&O/Wt Last Vital Signs Temp 98.2 F 03/29/24 07:17 Pulse 100 03/29/24 14:51 Resp 18 03/29/24 14:51 BP 114/72 03/29/24 11:14 Pulse Ox 99 03/29/24 14:51 O2 Del Method Nasal Cannula 03/29/24 14:51 O2 Flow Rate 3 03/29/24 14:51 FiO2 3.5 03/28/24 08:37 03/29/24 03/29/24 03/29/24 06:59 14:59 22:59 Intake Total 500 / 3140 840 / 840 Output Total 1999 / 1999 Balance 500 / 1840 -1160 / -1160 Weight last 48 hrs Weight 127.459 kg Weight 127.658 kg Weight 122.924 kg Physical Exam 2 Narrative: General: No acute distress, AO x3 HEENT: PERRLA, pupils bilaterally equal and reactive, pallors not present Chest: Reduced air entry onto the right lung. CVS: S1-S2 regular, no murmurs, no tachycardia, no gallops, no rubs Abdomen: Soft, nontender, no organomegaly, bowel sounds present Neuro: No focal deficits, no facial deformity, AO x3, power 5/5 in all limbs Extremities: Generalized anasarca Urinary Catheter Management: James: Cath Placed During This Visit: yes Reason for Continuing Indwelling Catheter: Acute Urinary Retention or Obstruction Urinary Catheter Date of Insertion: 03/28/24 Urinary Catheter Time of Insertion: 14:00 Data 03/29/24 06:13 03/29/24 06:13 Micro: Microbiology 03/28/24 05:57 Blood Culture - Preliminary Blood NEGATIVE TO DATE 03/28/24 05:57 Blood Culture - Preliminary Blood NEGATIVE TO DATE A&P Assessment and plan (1) Acute kidney insufficiency: (2) Pleural effusion on right: (3) Acute hypoxic respiratory failure: (4) Liver cirrhosis: (5) Anasarca: Plan New onset of CHF Patient will need an angiogram once he is euvolemic This seems to be induced by alcohol, not endorsing history of methamphetamine or cocaine Will check drug screen check TSH and B12 Patient will need outpatient cardiology follow-up as well I will start him on high-dose of Bumex 2 mg IV every 8 hours with BMP every 12 hours and potassium supplementation Acute hypoxia related to CHF Pleural effusion A-fib close patient has not improved with diuresis he may need thoracentesis Hypertension: Patient will need optimization of antihypertensive regimen Full code Cardiac diet DVT prophylaxis: Heparin Abnormal D-dimer CT chest ruled out PE 03/28/2024 Patient presenting with anasarca of the last 2 to 3 months, more acutely worsened over the past 2 to 3 weeks. Presumptively he has received a diagnosis of CHF, however has not been specifically investigated for the same. Echocardiogram has been taken, results remain pending. CT of the abdomen and pelvis showing liver cirrhosis which might be the more likely etiology of his anasarca. Signs of portal hypertension noted. He has moderate ascites, right- sided pleural effusion. Currently on diuresis with Bumex 2 mg IV every 8 hours. Has had poor urine output so far, bladder scan is showing retention of [address] James catheter to enable accurate PAYAL measurement, for urinary retention. Ultrasound-guided paracentesis ordered for tomorrow. Labs including cell count, body fluid albumin and protein ordered to assess for etiology. May additionally require thoracentesis if effusion fails to improve after paracentesis. Etiology of liver cirrhosis may be related to chronic alcohol abuse. Patient states he quit drinking 1 week ago. Ethyl alcohol level is negative from 03/28/2024. Urine amphetamine screen is positive, he denies sharing needles. Will check hepatitis B and C screening. Patient consents for additional HIV testing. REGINALD panel to assess for possibly autoimmune hepatitis. UA negative for proteinuria. Continue supplemental O2 at 2 L/min to maintain sats greater than 92% 03/29/2024 Status post paracentesis today with removal of 3000 cc of peritoneal fluid. Pending body fluid analysis. Tolerating diuresis well. Currently on Bumex 2 mg IV every 8 hours. Creatinine stable at 1.2. Net -500 cc. Lower extremity edema does appear to be improving today. No signs of alcohol withdrawal. Echocardiogram showing severe diffuse hypokinesia of the left ventricle with an EF of 25%. Moderately dilated LV cavity. Moderate biatrial enlargement. Based on these results, may be cardiomyopathy leading to congestive cirrhosis. cardiology consult. Troponins 50---> 27. repeat CXR in am, if persiting large effusion, will plan on thoracentesis Attestations 2 Medical Necessity Statement*: onging iv diuersis, paracentesis, may need thoracentesis Coding Level of Care Code Acute Code for Chg Fwd Diagnoses Acute kidney insufficiency N28.9 Pleural effusion on right J90 Acute hypoxic respiratory failure J96.01 Liver cirrhosis K74.60 Anasarca R60.1
[2024-03-29] MEDS: acetaminophen 500 mg Tablet PO (20:22)
[2024-03-30] VITALS (7 sets, daily range): BP systolic 125–152; BP diastolic 78–98; PULSE 99–111; RESP 15–20; TEMP 36.4–36.9; O2SAT 91–98
[2024-03-30 00:28] LABS: Body Fluid Polynuclear #Cells 0.049; Body Fluid WBC 458 /uL; Monocytes # Body Fluid 0.409; PATH Referral YES
[2024-03-30] MEDS: acetaminophen 500 mg Tablet PO ×2 (00:29→11:09)
[2024-03-30 01:05] LABS: Apprearance, Body Fluid CLOUDY; Color, Body Fluid AMBER
[2024-03-30 01:17] LABS: Albumin Body Fluid 2.4 g/dL; LDH Body Fluid 151 U/L
--- NOTE | 2024-03-30 04:00 | XRR_ITS ---
PROCEDURE INFORMATION: Exam: XR Chest Exam date and time: 03/30/2024 7:20 AM Age: 48 years old Clinical indication: Condition or disease; Lung condition and disease; Pleural effusion; Other: Not specified; Additional info: F/up pleural effusion TECHNIQUE: Imaging protocol: Radiologic exam of the chest. Views: 1 view. COMPARISON: CT angio chest w abd pel w con 03/28/2024 4:27 AM FINDINGS: Lungs: Essentially stable right lower lobe airspace opacity representing atelectasis and/or pneumonia overlying large right-sided pleural effusion. The left lung is clear. Pleural spaces: Large right pleural effusion. No significant left-sided pleural effusion. No pneumothorax. Heart/Mediastinum: Cardiomediastinal silhouette appears prominent accentuated by AP technique. Bones/joints: Unremarkable. XR/XR chest 1V portable [id number] IMPRESSION: Essentially stable large right pleural effusion with overlying compressive atelectasis and/or pneumonia.
[2024-03-30] MEDS: bumetanide 0.25 mg/mL SDV 4 mL 2 MG IVP ×3 (05:05→22:11)
[2024-03-30] MEDS: heparin 5,000 unit/mL INJ 1 mL 5000 UNIT SUBCUT ×2 (05:06→17:23)
[2024-03-30 06:05] LABS: Basophils % 0.1 %; Eosinophils # 0.1 10^3/uL (0.0-0.8); Eosinophils % 1.6 %; Hematocrit 48.1 % (37-53); Lymphocytes # 1.2 10^3/uL (0.8-4.8); Mean Corpuscular HGB Conc 29.9 g/dL (30-55); Mean Corpuscular Hemoglobin 26.7 pg (27-33); Mean Corpuscular Volume 89.2 fl (82-101); Mean Platelet Volume 9.9 fL (7.4-10.4); Monocytes # 0.8 10^3/uL (0.2-0.9); Monocytes % 11.4 %; Neutrophils # 4.58 10^3/uL (1.8-7.7); Neutrophils % 68.8 %; Nucleated Red Blood Cells % 0 %; Platelet Count 214 10^3/cmm (157-399); Red Blood Count 5.39 10^6/uL (3.85-5.65); Red Cell Distribution Width 17.8 % (12.1-15.1); White Blood Count 6.67 10^3/uL (3.29-11.43)
[2024-03-30 06:32] LABS: Alanine Aminotransferase 19 U/L (0-41); Albumin Level 3.4 g/dL (3.5-5.2); Alkaline Phosphatase 196 U/L (40-130); Anion Gap 13.6 (5-19); Aspartate Amino Transferase 20 U/L (0-40); Blood Urea Nitrogen 24 mg/dL (6-20); Calcium 8.2 mg/dL (8.5-10.5); Carbon Dioxide 31 mmol/L (22-29); Chloride 99 mmol/L (98-107); Creatinine Clr Calc Pharmacy 126.9151; Globulin 2.3 g/dL (1.3-4.6); Glomerular Filtration Rate 80.4 mL/min (90-130); Glucose 110 mg/dL (65-115); Osmolality Calculated 295 mOsm/kg (285-295); Potassium 3.6 mmol/L (3.5-5.1); Sodium 140 mmol/L (136-145); Total Bilirubin 2.4 mg/dL (0.15-1.2); Total Protein 5.7 g/dL (6.6-8.7)
[2024-03-30 07:20] LABS: COMPLEMENT COMPONENT C3C 99 mg/dL (82-185); COMPLEMENT COMPONENT C4C 19 mg/dL (15-53)
[2024-03-30] MEDS: potassium chloride ER 20 mEq Tablet 40 MEQ PO (09:13)
[2024-03-30] MEDS: folic acid 1 mg Tablet PO (09:13)
[2024-03-30] MEDS: sennosides-docusate Tablet 1 TAB PO (09:14)
[2024-03-30] MEDS: thiamine 100 mg Tablet PO (09:14)
[2024-03-30] MEDS: multivitamin therapeutic Tablet 1 TAB PO (09:14)
--- NOTE | 2024-03-30 10:16 | PC.CHAP ---
Pastoral Care Encounter/Spiritual Assessment Type of Contact [] Declined director human services visit [] Patient/Family/Request visit [] Outpatient visit [] Follow-up visit [] Physician referral [] Code/Alert [] Routine visit [] Staff referral [] Actively dying [x] Patient sleeping [] Family support [] [] Out of room [] Palliative care [] [] Receiving care in room [] Pre-surgical visit [] Trauma [] Long length of stay [] ICU visit [] Other: Relational/Emotional Strength [] Patient feels connected with others/family/visitors/staff [] Distress [] Loneliness/isolation [] Abandonment Spirituality of Patient [] Person of Belinda [] Attends Oriental Orthodox of their Belinda [] Believes in Prayer [] Reads Bible or Congregational materials [] There are Spiritual issues to be addressed Manager [employer]ing Interventions [] Prayer [] Active listening [] Non-anxious presence [] Spiritual/emotional support [] Crisis/trauma care [] Spiritual counseling [] Bereavement support [] Provided bereavement packet [] Provided Bible/devotional materials [] Provided toy/stuffed animal, coloring book to patient or family member [] Provided Communion [] Anointing/[place] [] Salvation [] Completed spiritual assessment [] Other: Impact on Illness or Injury [] Angry [] Fearful [] Anxious [] Often cries [] Exhaustion [] Unable to work [] Unable to attend oriental orthodox [] Unable to walk/stand [] Unable to read [] Unable to drive [] Unable to eat/drink [] Unable to sleep [] Unable to be with family [] Patient intubated [] Other: Summary Time spent with patient
--- NOTE | 2024-03-30 10:25 | PC.NURSE ---
NUTRITION EDUCATION: Pt had visitor whom brought him [employer] food. When visitor left, this nurse educated pt on importance of a cardiac healthy diet which is reducing sodium, fat, and cholesterol. Promoting healthy foods such as: vegetables, fruits, whole grains, lean poultry and oily fish (salmon and tuna) high in [place]-3 fatty acids. Pt will require frequent reinforcement and teaching.
--- NOTE | 2024-03-30 11:22 | P.CONIM_ITS ---
<Statement entered by Paul Roberson M.D - 03/30/24 19:25> Patient was evaluated and cared for in conjunction with an advanced practice practitioner.? I personally examined the patient and reviewed the chart and all pertinent data including imaging, telemetry, and laboratory results.? I discussed the patient in detail with the advanced practice practitioner.? Please see? their note for complete consult, results and agreed upon plan of care for the patient. Patient has presented with increasing shortness of breath, weight gain and orthopnea. Found to have liver cirrhosis and severe LV dysfunction. Currently diuresing. GENERAL: Patient is alert and oriented HEART: Regular S1 and S2 LUNGS: Mild crackles bilaterally CENTRAL NERVOUS SYSTEM:Non responsive at this time EXTREMITIES: Lower extremities with 2+ edema Assesment and Plan (1) CHF (congestive heart failure (2) Liver cirrhosis (3) Acute kidney insufficiency (4) Pleural effusion on right (5) Anasarca (6) Acute hypoxic respiratory failure Patient has presented with new onset congestive heart failure and EF is 25%. Also noted to have liver cirrhosis. Patient will need coronary angiogram once volume status improves. Continue with IV diuresis. Close I and Os. Monitor renal function. May require thoracentesis consideration, if it does improve with diuresis. Thank you for involving us with care of this patient. We will continue to follow. Please call with questions. Providers/Reason For Consult 2 Consulting Physician/Specialty*: Dr. Roberson Reason for Consult*: New onset CHF Attending Physician: Darcie Javier MD Primary Care Provider: RICHARD Guzman History of Present Illness History of Present Illness Alfred Spencer is a 48 year old male who came into the ER couple days ago for increased shortness of breath and orthopnea as well as weight gain. He states that he had been doing okay but the last couple weeks he gained about 20 pounds. He states he was chopping wood and all of a sudden developed severe shortness of breath. Denies any chest pain. His father has a cardiac history he states he has never seen a unindentured apprentice. He states he does not go to the doctor very often. He does have a history of alcohol intake. He was positive for amphetamines as well. He did take diuretics at home. He does state he has a history of hypertension. He currently is getting Bumex 2 mg every 8 hours and has responded well to this. He is negative over 5 L in the past 24 hours. Although he has had responses he has a large right pleural effusion seen on x- ray. He states shortness of breath and orthopnea has improved. He still has extensive edema all the way up to his thighs. Bilateral lung bases are diminished. CT abdomen/pelvis showed cirrhotic liver with moderate ascited. He has had a paracentesis as well in which they took 3 L off. They are planning to do another 1 today. Echo was performed that showed his EF was severely diminished at 25% with severe hypokinesis of the left ventricle. Currently he is chest pain-free and states that his shortness of breath has improved. He is on 2 L nasal cannula. O2 sat is 98%. Patient is a little tachycardic at 111 and blood pressure is 129/97. EKG showed previous anterioseptal infarction. No acute changes. CT chest abdoem/pelvis IMPRESSION: 1. No pulmonary embolism. 2. Large right pleural effusion with mild pulmonary edema. 3. Near complete collapse of the right lower and middle lobes. IMPRESSION: Cirrhotic liver morphology with sequela of portal hypertension including splenomegaly and moderate volume ascites. CONCLUSIONS Severe diffuse hypokinesia of the left ventricle with an ejection fraction of 25%. Moderately dilated LV cavity. Moderate biatrial enlargement. Moderate mitral valve regurgitation. Thickened aortic valve. Moderate tricuspid valve regurgitation. The pulmonary artery pressure estimated to be in the normal range. However this could be misleading because of poor Doppler signals. There is no pericardial effusion. No similar previous studies are available for comparison Review of Systems 2 Narrative: Consitutional: denies fever, chills, body aches, or changes in appetite, denies abnormal weight loss Eyes: Denies changes in vision Card: Denies chest pain, palpitations, irregular heart rhythm, reports sudden onset of severe edema, denies syncope, reports shortness of breath on exertion but improved, reports orthopnea but improved Resp: Reports shortness of breath on exertion improved, denies hemoptysis, reports dry cough GI: denies abdominal pain, denies nausea or voimting, denies blood in stool : denies blood in urine, denies dysuria Musc: Denies extremity pain, denies limited range of motion or recent injury Skin: Denies rash, lesions, or wounds, denies changes to skin color Neuro: Denies nubmness in extremities, h/a, s/s of stroke Miguel: Denies easy bruiding/bleeding Medications/Allergies Home Medications Medication Instructions Recorded Confirmed Last Taken Type bumetanide 2 mg tablet 2 mg PO BID 03/28/24 03/28/24 03/27/24 History carvedilol 6.25 mg tablet 6.25 mg PO BID 03/28/24 03/28/24 03/27/24 History furosemide 40 mg tablet (Lasix) 40 mg PO QAM 03/28/24 03/28/24 03/27/24 History potassium chloride 10 mEq 10 meq PO DAILY 03/28/24 03/28/24 03/27/24 History tablet,extended release Allergies Allergy/AdvReac Type Severity Reaction Status Date / Time No Known Allergies Allergy Verified 03/28/24 04:15 Current Medications Generic Name Dose Route Start Last Admin Trade Name Freq PRN Reason Stop Dose Admin Acetaminophen 500 mg 03/28/24 04:18 03/30/24 11:09 Acetaminophen 500 Mg Tablet PO 500 mg Q4H PRN Administration fever Bumetanide 2 mg 03/28/24 06:00 03/30/24 05:05 Bumetanide 0.25 Mg/Ml Sdv 4 Ml IVP 2 mg Q8H JAYLIN Administration Folic Acid 1 mg 03/29/24 09:00 03/30/24 09:13 Folic Acid 1 Mg Tablet PO 1 mg DAILY JAYLIN Administration Heparin Sodium (Porcine) 5,000 unit 03/28/24 04:30 03/30/24 05:06 Heparin 5,000 Unit/Ml Inj 1 Ml SUBCUT 5,000 unit Q12H JAYLIN Administration Lorazepam 2 mg 03/28/24 13:50 03/28/24 17:27 Lorazepam 2 Mg/Ml Inj 1 Ml IVP 2 mg PRN PRN Administration WITHDRAWAL Protocol Multivitamins Therapeutic 1 tab 03/29/24 09:00 03/30/24 09:14 Multivitamin Therapeutic Tablet PO 1 tab DAILY JAYLIN Administration Potassium Chloride 40 meq 03/28/24 09:00 03/30/24 09:13 Potassium Chloride Er 20 Meq Tablet PO 40 meq DAILY JAYLIN Administration Senna/Docusate Sodium 1 tab 03/28/24 09:00 03/30/24 09:14 Sennosides-Docusate Tablet PO 1 tab DAILY JAYLIN Administration Thiamine Mononitrate 100 mg 03/29/24 09:00 03/30/24 09:14 Thiamine 100 Mg Tablet PO 100 mg DAILY JAYLIN Administration PFSH Acute 2 PFSH: Medical History (Updated 03/28/24 @ 16:28 by Tamika Rodas MD) CHF (congestive heart failure) Family History (Updated 03/28/24 @ 05:42 by Wilda Mera MD) Other CAD (coronary artery disease) Social History (Updated 03/28/24 @ 05:43 by Wilda Mera MD) Smoking and tobacco/nicotine status: current every day tobacco/nicotine user Alcohol intake: current Vitals/I&O/Wt Last Vital Signs Temp 97.6 F 03/30/24 04:00 Pulse 111 H 03/30/24 09:06 Resp 20 H 03/30/24 09:06 BP 129/97 03/30/24 07:13 Pulse Ox 98 03/30/24 09:06 O2 Del Method Nasal Cannula 03/30/24 09:06 O2 Flow Rate 2 03/30/24 09:06 FiO2 3.5 03/28/24 08:37 03/29/24 03/30/24 03/30/24 22:59 06:59 14:59 Intake Total 480 / 1320 Output Total 1700 / 3700 2750 / 6450 1750 / 1750 Balance -1220 / -2380 -2750 / -5130 -1750 / -1750 Weight last 48 hrs Weight 271 lb 9 oz Weight 281 lb Physical Exam 2 Narrative: General: No apparent distress, healthy appearing, well nourished HENMT: normoceophalic Eye: PERRL Neck: No carotid bruit bilaterally Muskuloskeletal: Full ROM Respiratory: Normal respiratory effort, bilateral lower lobes diminished, no use of accessory muscles Cardio: No JVD, regular rate, regular rhythm, S1 S2 normal, no murmurs, peripheral pulses 2+ throughout GI: Abdomen slightly distended Extremities: Patient has pitting edema all the way up to his thighs bilaterally Neuro: Alert and oriented x4, no focal motor deficits Psych: Affect normal, denies suicidal ideation, mental status grossly normal Skin: No rashes or lesions noted, no wounds Urinary Catheter Management: James: Cath Placed During This Visit: yes Reason for Continuing Indwelling Catheter: Other Urinary Catheter Date of Insertion: 03/28/24 Urinary Catheter Time of Insertion: 14:00 Data 03/30/24 05:18 03/30/24 05:18 Micro: Microbiology 03/29/24 14:45 Gram Stain - Final Peritoneal Fluid 03/28/24 05:57 Blood Culture - Preliminary Blood NEGATIVE TO DATE 03/28/24 05:57 Blood Culture - Preliminary Blood NEGATIVE TO DATE A&P Assessment and plan (1) CHF (congestive heart failure): Qualifiers: Heart failure chronicity: acute Heart failure type: unspecified Qualified Code(s): I50.9 - Heart failure, unspecified (2) Liver cirrhosis: (3) Acute kidney insufficiency: (4) Pleural effusion on right: (5) Anasarca: (6) Acute hypoxic respiratory failure: Plan Patient has new onset CHF with an ejection fraction of 25% with severely hypokinetic left ventricle. Patient will need coronary angiogram at some point once he is euvolemic to rule out ischemia as the etiology for the cardiomyopathy. At this time patient is still severely fluid overload in need of another paracentesis according to the patient. He may need a thoracentesis of his right-sided pleural effusion as well as this is pretty large and is persistent despite diuretic therapy. At this time we will go ahead and start the patient on carvedilol for heart failure, hypertension, and rate control. When patient is euvolemic, we will take him to the school laboratory technician for a coronary angiogram. Agree with current diuretic therapy as patient is responsive to this. Thank you for allowing us to take care of this gentleman. Coding Level of Care Code Acute Code for [facility] Diagnoses CHF (congestive heart failure) I50.9 Heart failure chronicity: acute Heart failure type: unspecified Liver cirrhosis K74.60 Acute kidney insufficiency N28.9 Pleural effusion on right J90 Anasarca R60.1 Acute hypoxic respiratory failure J96.01
--- NOTE | 2024-03-30 14:05 | P.PN_ITS ---
Subjective 2 Subjective: Seen this morning. Chest x-ray today does show a right large pleural effusion Patient has had 7 L urine output in last 24 hours. His 6 L negative since admission. Cardiology following patient. Vitals/I&O/Wt Last Vital Signs Temp 97.6 F 03/30/24 04:00 Pulse 107 H 03/30/24 12:00 Resp 18 03/30/24 12:00 BP 125/98 03/30/24 12:00 Pulse Ox 98 03/30/24 12:00 O2 Del Method Nasal Cannula 03/30/24 12:00 O2 Flow Rate 2 03/30/24 12:00 FiO2 3.5 03/28/24 08:37 03/29/24 03/30/24 03/30/24 22:59 06:59 14:59 Intake Total 480 / 1320 240 / 240 Output Total 1700 / 3700 2750 / 6450 3150 / 3150 Balance -1220 / -2380 -2750 / -5130 -2910 / -2910 Weight last 48 hrs Weight 123.179 kg Weight 127.459 kg Physical Exam 2 Narrative: General: No acute distress, AO x3 HEENT: PERRLA, pupils bilaterally equal and reactive, pallors not present Chest: Reduced air entry onto the right lung. Left lung clear to auscultation. CVS: S1-S2 regular, no murmurs, no tachycardia, no gallops, no rubs Abdomen: Soft, nontender, no organomegaly, bowel sounds present Neuro: No focal deficits, no facial deformity, AO x3, Extremities: Generalized anasarca, pitting edema bilateral lower extremities 2+. Urinary Catheter Management: James: Cath Placed During This Visit: yes Reason for Continuing Indwelling Catheter: Other Urinary Catheter Date of Insertion: 03/28/24 Urinary Catheter Time of Insertion: 14:00 Data 03/30/24 05:18 03/30/24 05:18 Micro: Microbiology 03/29/24 14:45 Gram Stain - Final Peritoneal Fluid A&P Assessment and plan (1) Acute kidney insufficiency: (2) Pleural effusion on right: (3) Acute hypoxic respiratory failure: (4) Liver cirrhosis: (5) Anasarca: Plan New onset of CHF Patient will need an angiogram once he is euvolemic This seems to be induced by alcohol, not endorsing history of methamphetamine or cocaine Will check drug screen check TSH and B12 Patient will need outpatient cardiology follow-up as well I will start him on high-dose of Bumex 2 mg IV every 8 hours with BMP every 12 hours and potassium supplementation Acute hypoxia related to CHF Pleural effusion A-fib close patient has not improved with diuresis he may need thoracentesis Hypertension: Patient will need optimization of antihypertensive regimen Full code Cardiac diet DVT prophylaxis: Heparin Abnormal D-dimer CT chest ruled out PE 03/28/2024 Patient presenting with anasarca of the last 2 to 3 months, more acutely worsened over the past 2 to 3 weeks. Presumptively he has received a diagnosis of CHF, however has not been specifically investigated for the same. Echocardiogram has been taken, results remain pending. CT of the abdomen and pelvis showing liver cirrhosis which might be the more likely etiology of his anasarca. Signs of portal hypertension noted. He has moderate ascites, right- sided pleural effusion. Currently on diuresis with Bumex 2 mg IV every 8 hours. Has had poor urine output so far, bladder scan is showing retention of [address] James catheter to enable accurate PAYAL measurement, for urinary retention. Ultrasound-guided paracentesis ordered for tomorrow. Labs including cell count, body fluid albumin and protein ordered to assess for etiology. May additionally require thoracentesis if effusion fails to improve after paracentesis. Etiology of liver cirrhosis may be related to chronic alcohol abuse. Patient states he quit drinking 1 week ago. Ethyl alcohol level is negative from 03/28/2024. Urine amphetamine screen is positive, he denies sharing needles. Will check hepatitis B and C screening. Patient consents for additional HIV testing. REGINALD panel to assess for possibly autoimmune hepatitis. UA negative for proteinuria. Continue supplemental O2 at 2 L/min to maintain sats greater than 92% 03/29/2024 Status post paracentesis today with removal of 3000 cc of peritoneal fluid. Pending body fluid analysis. Tolerating diuresis well. Currently on Bumex 2 mg IV every 8 hours. Creatinine stable at 1.2. Net -500 cc. Lower extremity edema does appear to be improving today. No signs of alcohol withdrawal. Echocardiogram showing severe diffuse hypokinesia of the left ventricle with an EF of 25%. Moderately dilated LV cavity. Moderate biatrial enlargement. Based on these results, may be cardiomyopathy leading to congestive cirrhosis. cardiology consult. Troponins 50---> 27. repeat CXR in am, if persiting large effusion, will plan on thoracentesis 03/30/2024 -Patient is status post paracentesis with 3 L of peritoneal fluid removed. Fluid analysis not consistent with SBP. ? Has a large right pleural effusion. Will order thoracentesis with fluid analysis. ? Echocardiogram does show low EF 25%. Moderately dilated left ventricular cavity. Most likely patient had cardiomyopathy leading to congestive cirrhosis. Cardiology has been consulted. ? Continue IV diuresis with Bumex 2 mg IV every 8 hours ? Continue to replete potassium as warranted ? Continue Coreg 3.125 twice daily ? Patient will need coronary angiogram prior to discharge to further evaluate cardiac status ? May also need LifeVest at discharge. Will discuss with cardiology. ? Patient will also need GI referral at discharge. CT abdomen pelvis does show cirrhotic changes in liver. Attestations 2 Medical Necessity Statement*: Thoracentesis today. Continue IV diuresis. Diagnoses Acute kidney insufficiency N28.9 Pleural effusion on right J90 Acute hypoxic respiratory failure J96.01 Liver cirrhosis K74.60 Anasarca R60.1
[2024-03-30] MEDS: carvedilol 3.125 mg Tablet PO (17:23)
[2024-03-31] VITALS (7 sets, daily range): BP systolic 113–131; BP diastolic 77–91; PULSE 94–107; RESP 16–22; TEMP 36.4–36.9; O2SAT 90–98
[2024-03-31] MEDS: heparin 5,000 unit/mL INJ 1 mL 5000 UNIT SUBCUT ×2 (05:31→17:35)
[2024-03-31] MEDS: bumetanide 0.25 mg/mL SDV 4 mL 2 MG IVP ×3 (05:31→21:13)
[2024-03-31 05:43] LABS: Basophils % 0.3 %; Eosinophils # 0.1 10^3/uL (0.0-0.8); Eosinophils % 1.5 %; Hematocrit 48.8 % (37-53); Lymphocytes # 0.9 10^3/uL (0.8-4.8); Lymphocytes % 13.2 %; Mean Corpuscular HGB Conc 30.3 g/dL (30-55); Mean Corpuscular Hemoglobin 27.4 pg (27-33); Mean Corpuscular Volume 90.2 fl (82-101); Mean Platelet Volume 9.7 fL (7.4-10.4); Monocytes # 0.7 10^3/uL (0.2-0.9); Monocytes % 10.1 %; Neutrophils # 4.85 10^3/uL (1.8-7.7); Neutrophils % 74.6 %; Nucleated Red Blood Cells % 0 %; Platelet Count 211 10^3/cmm (157-399); Red Blood Count 5.41 10^6/uL (3.85-5.65); Red Cell Distribution Width 17.8 % (12.1-15.1); White Blood Count 6.51 10^3/uL (3.29-11.43)
[2024-03-31 06:15] LABS: Alanine Aminotransferase 20 U/L (0-41); Albumin Level 3.4 g/dL (3.5-5.2); Alkaline Phosphatase 227 U/L (40-130); Anion Gap 12.9 (5-19); Aspartate Amino Transferase 24 U/L (0-40); Blood Urea Nitrogen 24 mg/dL (6-20); Calcium 8.4 mg/dL (8.5-10.5); Carbon Dioxide 34 mmol/L (22-29); Chloride 98 mmol/L (98-107); Creatinine Clr Calc Pharmacy 125.9527; Globulin 2.4 g/dL (1.3-4.6); Glomerular Filtration Rate 80.4 mL/min (90-130); Glucose 156 mg/dL (65-115); Lactate Dehydrogenase 256 U/L (135-225); Magnesium 2.2 mg/dL (1.7-2.3); Osmolality Calculated 299 mOsm/kg (285-295); Potassium 3.9 mmol/L (3.5-5.1); Sodium 141 mmol/L (136-145); Total Bilirubin 1.9 mg/dL (0.15-1.2); Total Protein 5.8 g/dL (6.6-8.7)
--- NOTE | 2024-03-31 07:00 | US_ITS ---
WS: [id number] ULTRASOUND-GUIDED THORACENTESIS CLINICAL INFORMATION: right pleural effusion PROCEDURE: Informed consent: The risks, benefits, and alternatives of the procedure were discussed with the chao ent. Verbal and written consent was obtained. Timeout: A timeout was performed to confirm the correct patient, procedure, and site. Site: RIGHT chest Preparation: A suitable skin site was identified. The patient was prepped and draped in usual sterile fashion. Lidocaine 1% was used for local anesthesia. Catheter: 4 English One-Step catheter. Fluid Volume: 1000 ml Color: Clear yellow Discarded safely. Sent to the laboratory for analysis. Complications: None. / thoracentesis [id number] IMPRESSION: 1. Uncomplicated ultrasound-guided RIGHT thoracentesis. 2. Removal of 1000 cc 3. No pneumothorax on the post thoracentesis radiograph
[2024-03-31 07:05] LABS: CENTROMERE B ANTIBODY <1.0 NEG AI (<1.0 NEG); JO-1 ANTIBODY <1.0 NEG AI (<1.0 NEG); RNP ANTIBODY 3.1 POS AI (<1.0 NEG); SCL-70 ANTIBODY <1.0 NEG AI (<1.0 NEG); SJOGREN'S ANTIBODY (SS-A) <1.0 NEG AI (<1.0 NEG); SM ANTIBODY <1.0 NEG AI (<1.0 NEG); SS-B <1.0 NEG AI (<1.0 NEG)
[2024-03-31 07:28] LABS: INR 1.17 (0.8-1.2)
[2024-03-31] MEDS: thiamine 100 mg Tablet PO (08:26)
[2024-03-31] MEDS: multivitamin therapeutic Tablet 1 TAB PO (08:26)
[2024-03-31] MEDS: folic acid 1 mg Tablet PO (08:26)
[2024-03-31] MEDS: potassium chloride ER 20 mEq Tablet 40 MEQ PO (08:26)
[2024-03-31] MEDS: sennosides-docusate Tablet 1 TAB PO (08:26)
[2024-03-31] MEDS: carvedilol 3.125 mg Tablet PO ×2 (08:26→17:35)
[2024-03-31 08:41] LABS: THYROID PEROXIDASE ANTIBODIES 1 IU/mL (<9)
--- NOTE | 2024-03-31 10:44 | PC.CHAP ---
Pastoral Care Encounter/Spiritual Assessment Type of Contact [] Declined clay stain mixer visit [] Patient/Family/Request visit [] Outpatient visit [] Follow-up visit [] Physician referral [] Code/Alert [] Routine visit [] Staff referral [] Actively dying [x] Patient sleeping [] Family support [] [] Out of room [] Palliative care [] [] Receiving care in room [] Pre-surgical visit [] Trauma [] Long length of stay [] ICU visit [] Other: Relational/Emotional Strength [] Patient feels connected with others/family/visitors/staff [] Distress [] Loneliness/isolation [] Abandonment Spirituality of Patient [] Person of Belinda [] Attends Temple of their Belinda [] Believes in Prayer [] Reads Bible or Restoration materials [] There are Spiritual issues to be addressed Loan Secretary Interventions [] Prayer [] Active listening [] Non-anxious presence [] Spiritual/emotional support [] Crisis/trauma care [] Spiritual counseling [] Bereavement support [] Provided bereavement packet [] Provided Bible/devotional materials [] Provided toy/stuffed animal, coloring book to patient or family member [] Provided Communion [] Anointing/Sterling [] Salvation [] Completed spiritual assessment [] Other: Impact on Illness or Injury [] Angry [] Fearful [] Anxious [] Often cries [] Exhaustion [] Unable to work [] Unable to attend mandaen [] Unable to walk/stand [] Unable to read [] Unable to drive [] Unable to eat/drink [] Unable to sleep [] Unable to be with family [] Patient intubated [] Other: Summary Time spent with patient
--- NOTE | 2024-03-31 10:54 | P.PN_ITS ---
<Statement entered by Paul Roberson M.D - 03/31/24 16:47> Patient was evaluated and cared for in conjunction with an advanced practice practitioner.? I personally examined the patient and reviewed the chart and all pertinent data including imaging, telemetry, and laboratory results.? I discussed the patient in detail with the advanced practice practitioner.? Please see? their note for complete progress note, results and agreed upon plan of care for the patient. Patient feeling better. Still short of breath. GENERAL: Patient is alert and oriented HEART: Regular S1 and S2 LUNGS: Mild crackles bilaterally EXTREMITIES: Lower extremities with 2+ edema Assesment and Plan (1) CHF (congestive heart failure (2) Liver cirrhosis (3) Acute kidney insufficiency (4) Pleural effusion on right (5) Anasarca (6) Acute hypoxic respiratory failure Plan for thoracentesis today. Continue diuretics. Monitor I and Os. Monitor renal function Plan for possible left heart cath tomorrow. NPO past midnight. Thank you for involving us with care of this patient. We will continue to follow. Please call with questions. Subjective 2 Subjective: Patient doing much better today. He is negative over 7 L over 24 hours. States he still has some issues lying flat but overall improved. He is going to go for thoracentesis today. Medications: Reviewed: Yes Vitals/I&O/Wt Last Vital Signs Temp 97.6 F 03/31/24 08:00 Pulse 107 H 03/31/24 08:17 Resp 18 03/31/24 08:17 BP 131/89 03/31/24 08:00 Pulse Ox 97 03/31/24 08:17 O2 Del Method Nasal Cannula 03/31/24 08:17 O2 Flow Rate 1.5 03/31/24 08:17 FiO2 3.5 03/28/24 08:37 03/30/24 03/31/24 03/31/24 22:59 06:59 14:59 Intake Total 240 / 480 470 / 950 415 / 415 Output Total 4750 / 7900 2450 / 63777 1949 / 1950 Balance -4510 / -7420 -1980 / -9400 -1535 / -1535 Weight last 48 hrs Weight 267 lb 8 oz Weight 271 lb 9 oz Physical Exam 2 Narrative: General: No apparent distress, healthy appearing, well nourished HENMT: normoceophalic Eye: PERRL Neck: No carotid bruit bilaterally Muskuloskeletal: Full ROM Respiratory: Normal respiratory effort, bilateral lower lobes diminished, no use of accessory muscles Cardio: No JVD, regular rate, regular rhythm, S1 S2 normal, no murmurs, peripheral pulses 2+ throughout GI: Abdomen slightly distended Extremities: Patient has pitting edema all the way up to his thighs bilaterally Neuro: Alert and oriented x4, no focal motor deficits Psych: Affect normal, denies suicidal ideation, mental status grossly normal Skin: No rashes or lesions noted, no wounds Urinary Catheter Management: James: Cath Placed During This Visit: yes Reason for Continuing Indwelling Catheter: Other Urinary Catheter Date of Insertion: 03/28/24 Urinary Catheter Time of Insertion: 14:00 Data 03/31/24 05:21 03/31/24 05:21 Micro: Microbiology 03/29/24 14:45 Gram Stain - Final Peritoneal Fluid A&P Assessment and plan (1) CHF (congestive heart failure): Qualifiers: Heart failure chronicity: acute Heart failure type: unspecified Qualified Code(s): I50.9 - Heart failure, unspecified (2) Liver cirrhosis: (3) Acute kidney insufficiency: (4) Pleural effusion on right: (5) Anasarca: (6) Acute hypoxic respiratory failure: Plan Patient has new onset CHF with an ejection fraction of 25% with severely hypokinetic left ventricle. Patient will need coronary angiogram at some point once he is euvolemic to rule out ischemia as the etiology for the cardiomyopathy. At this time patient is still severely fluid overload in need of another paracentesis according to the patient. He may need a thoracentesis of his right-sided pleural effusion as well as this is pretty large and is persistent despite diuretic therapy. At this time we will go ahead and start the patient on carvedilol for heart failure, hypertension, and rate control. When patient is euvolemic, we will take him to the cathead worker for a coronary angiogram. Agree with current diuretic therapy as patient is responsive to this. 03/31/2024 At this time, patient is going to have a thoracentesis. He is improving, but still has some fluid overload. Will continue to diurese. He is responding well. Will see how he does. Plan on heart cath tomorrow. Attestations 2 Medical Necessity Statement*: Deferred to primary. Coding Level of Care Code Acute Code for Chg Fwd Diagnoses CHF (congestive heart failure) I50.9 Heart failure chronicity: acute Heart failure type: unspecified Liver cirrhosis K74.60 Acute kidney insufficiency N28.9 Pleural effusion on right J90 Anasarca R60.1 Acute hypoxic respiratory failure J96.01
--- NOTE | 2024-03-31 14:00 | P.PN_ITS ---
Subjective 2 Subjective: Seen this morning. Patient has been eating [employer] fast food which his friend has been bringing him. I discussed with patient regarding salt load and that we are actively diuresing him at this time. Plan for thoracentesis today. Vitals/I&O/Wt Last Vital Signs Temp 98.1 F 03/31/24 12:00 Pulse 96 03/31/24 12:00 Resp 19 H 03/31/24 12:00 BP 115/80 03/31/24 12:00 Pulse Ox 97 03/31/24 12:00 O2 Del Method Nasal Cannula 03/31/24 12:00 O2 Flow Rate 1.5 03/31/24 08:17 FiO2 3.5 03/28/24 08:37 03/30/24 03/31/24 03/31/24 22:59 06:59 14:59 Intake Total 240 / 480 470 / 950 655 / 655 Output Total 4750 / 7900 2450 / 81270 3025 / 3025 Balance -4510 / -7420 -1980 / -9400 -2370 / -2370 Weight last 48 hrs Weight 121.336 kg Weight 123.179 kg Physical Exam 2 Narrative: General: No acute distress, AO x3 HEENT: PERRLA, pupils bilaterally equal and reactive, pallors not present Chest: Reduced air entry onto the right lung. Left lung clear to auscultation. CVS: S1-S2 regular, no murmurs, no tachycardia, no gallops, no rubs Abdomen: Soft, nontender, no organomegaly, bowel sounds present Neuro: No focal deficits, no facial deformity, AO x3, Extremities: Generalized anasarca, pitting edema bilateral lower extremities 2+. Urinary Catheter Management: James: Cath Placed During This Visit: yes Reason for Continuing Indwelling Catheter: Other Urinary Catheter Date of Insertion: 03/28/24 Urinary Catheter Time of Insertion: 14:00 Data 03/31/24 05:21 03/31/24 05:21 Micro: Microbiology 03/29/24 14:45 Gram Stain - Final Peritoneal Fluid Body Fluid Culture - Preliminary A&P Assessment and plan (1) Acute kidney insufficiency: (2) Pleural effusion on right: (3) Acute hypoxic respiratory failure: (4) Liver cirrhosis: (5) Anasarca: Plan New onset of CHF Patient will need an angiogram once he is euvolemic This seems to be induced by alcohol, not endorsing history of methamphetamine or cocaine Will check drug screen check TSH and B12 Patient will need outpatient cardiology follow-up as well I will start him on high-dose of Bumex 2 mg IV every 8 hours with BMP every 12 hours and potassium supplementation Acute hypoxia related to CHF Pleural effusion A-fib close patient has not improved with diuresis he may need thoracentesis Hypertension: Patient will need optimization of antihypertensive regimen Full code Cardiac diet DVT prophylaxis: Heparin Abnormal D-dimer CT chest ruled out PE 03/28/2024 Patient presenting with anasarca of the last 2 to 3 months, more acutely worsened over the past 2 to 3 weeks. Presumptively he has received a diagnosis of CHF, however has not been specifically investigated for the same. Echocardiogram has been taken, results remain pending. CT of the abdomen and pelvis showing liver cirrhosis which might be the more likely etiology of his anasarca. Signs of portal hypertension noted. He has moderate ascites, right- sided pleural effusion. Currently on diuresis with Bumex 2 mg IV every 8 hours. Has had poor urine output so far, bladder scan is showing retention of [address] James catheter to enable accurate PAYAL measurement, for urinary retention. Ultrasound-guided paracentesis ordered for tomorrow. Labs including cell count, body fluid albumin and protein ordered to assess for etiology. May additionally require thoracentesis if effusion fails to improve after paracentesis. Etiology of liver cirrhosis may be related to chronic alcohol abuse. Patient states he quit drinking 1 week ago. Ethyl alcohol level is negative from 03/28/2024. Urine amphetamine screen is positive, he denies sharing needles. Will check hepatitis B and C screening. Patient consents for additional HIV testing. REGINALD panel to assess for possibly autoimmune hepatitis. UA negative for proteinuria. Continue supplemental O2 at 2 L/min to maintain sats greater than 92% 03/29/2024 Status post paracentesis today with removal of 3000 cc of peritoneal fluid. Pending body fluid analysis. Tolerating diuresis well. Currently on Bumex 2 mg IV every 8 hours. Creatinine stable at 1.2. Net -500 cc. Lower extremity edema does appear to be improving today. No signs of alcohol withdrawal. Echocardiogram showing severe diffuse hypokinesia of the left ventricle with an EF of 25%. Moderately dilated LV cavity. Moderate biatrial enlargement. Based on these results, may be cardiomyopathy leading to congestive cirrhosis. cardiology consult. Troponins 50---> 27. repeat CXR in am, if persiting large effusion, will plan on thoracentesis 03/30/2024 -Patient is status post paracentesis with 3 L of peritoneal fluid removed. Fluid analysis not consistent with SBP. ? Has a large right pleural effusion. Will order thoracentesis with fluid analysis. ? Echocardiogram does show low EF 25%. Moderately dilated left ventricular cavity. Most likely patient had cardiomyopathy leading to congestive cirrhosis. Cardiology has been consulted. ? Continue IV diuresis with Bumex 2 mg IV every 8 hours ? Continue to replete potassium as warranted ? Continue Coreg 3.125 twice daily ? Patient will need coronary angiogram prior to discharge to further evaluate cardiac status ? May also need LifeVest at discharge. Will discuss with cardiology. ? Patient will also need GI referral at discharge. CT abdomen pelvis does show cirrhotic changes in liver. 03/31/2024 -Continue oxygen supplementation to maintain sats greater than 92% ? Patient is status post paracentesis with 3 L removed. Fluid not indicative of SBP. ? EF 25% moderately dilated left ventricular cavity. Plan for cardiac cath in AM. Discussed with cardiology ? Patient to go for thoracentesis today. ? Will need GI referral at discharge. ? Counseled patient on diet as he has been eating fast food in the hospital. Discussed with him regarding the salt load, heart failure fluid overload diuresis. Patient demonstrated understanding and stated that he will quit. Attestations 2 Medical Necessity Statement*: Thoracentesis today. Continue IV diuresis. Coronary angiogram in a.m. Diagnoses Acute kidney insufficiency N28.9 Pleural effusion on right J90 Acute hypoxic respiratory failure J96.01 Liver cirrhosis K74.60 Anasarca R60.1
[2024-03-31 14:44] LABS: COMPLEMENT, TOTAL (CH50) 48 U/mL (31-60)
--- NOTE | 2024-03-31 14:45 | XR_ITS ---
WS: [id number] CHEST XRAY TECHNIQUE: Portable chest. CLINICAL INFORMATION: thoracentesis COMPARISON: 03/30/2024 FINDINGS: Shallow inspiration. Heart: Cardiomegaly. Lungs: Elevation RIGHT hemidiaphragm. Volume loss RIGHT lower lobe. Improved RIGHT pleural effusion. Compressive atelectasis RIGHT lower lobe similar to previous. No pneumothorax. Bones: Normal visualized bony structures. XR/XR chest 1V portable [id number] IMPRESSION: 1. No pneumothorax post RIGHT thoracentesis. Improved RIGHT pleural effusion. 2. Persistent volume loss RIGHT lung with RIGHT lower lobe atelectasis
[2024-03-31 15:26] LABS: Apprearance, Body Fluid CLOUDY; Color, Body Fluid AMBER; PATH Referral YES
[2024-03-31 15:30] LABS: Hematocrit Body Fluid 0.1 %
[2024-03-31 15:31] LABS: Cyto Order Verification No Order; Fluid Laterality PLEURAL FLUID
[2024-03-31 15:37] LABS: Body Fluid Polynuclear #Cells 0.018; Body Fluid WBC 155 /uL; Monocytes # Body Fluid 0.137
[2024-03-31 16:10] LABS: Albumin Body Fluid 2.4 g/dL; Creatinine Body Fluid 0.99 (0.7-1.2); LDH Pleural Fluid 150 U/L; Total Protein Pleural Fluid 3.6 g/dL; Triglycerides, Pleural Fluid 41 mg/dL
[2024-03-31] MEDS: acetaminophen 500 mg Tablet PO (17:43)
[2024-04-01] VITALS (34 sets, daily range): BP systolic 110–148; BP diastolic 80–96; PULSE 66–113; RESP 9–23; TEMP 36.4–36.6; O2SAT 90–100
[2024-04-01] MEDS: heparin 5,000 unit/mL INJ 1 mL 5000 UNIT SUBCUT ×2 (05:07→16:20)
[2024-04-01] MEDS: bumetanide 0.25 mg/mL SDV 4 mL 2 MG IVP ×2 (05:07→16:20)
[2024-04-01 06:10] LABS: Basophils % 0.5 %; Eosinophils # 0.1 10^3/uL (0.0-0.8); Eosinophils % 1.5 %; Hematocrit 49.9 % (37-53); Lymphocytes # 1.3 10^3/uL (0.8-4.8); Lymphocytes % 20.9 %; Mean Corpuscular HGB Conc 30.3 g/dL (30-55); Mean Corpuscular Volume 89.1 fl (82-101); Mean Platelet Volume 9.9 fL (7.4-10.4); Monocytes # 0.7 10^3/uL (0.2-0.9); Monocytes % 10.5 %; Neutrophils % 66.3 %; Nucleated Red Blood Cells % 0 %; Platelet Count 203 10^3/cmm (157-399); Red Cell Distribution Width 17.5 % (12.1-15.1); White Blood Count 6.18 10^3/uL (3.29-11.43)
[2024-04-01 07:08] LABS: Anion Gap 16.8 (5-19); Blood Urea Nitrogen 20 mg/dL (6-20); Calcium 8.8 mg/dL (8.5-10.5); Carbon Dioxide 31 mmol/L (22-29); Chloride 98 mmol/L (98-107); Creatinine Clr Calc Pharmacy 137.2365; Glomerular Filtration Rate 90.8 mL/min (90-130); Glucose 116 mg/dL (65-115); Osmolality Calculated 298 mOsm/kg (285-295); Potassium 3.8 mmol/L (3.5-5.1); Sodium 142 mmol/L (136-145)
[2024-04-01] MEDS: thiamine 100 mg Tablet PO (08:53)
[2024-04-01] MEDS: carvedilol 3.125 mg Tablet PO ×2 (08:53→17:21)
[2024-04-01] MEDS: potassium chloride ER 20 mEq Tablet 40 MEQ PO (08:53)
[2024-04-01] MEDS: aspirin 325 mg Tablet PO (08:54)
[2024-04-01] MEDS: multivitamin therapeutic Tablet 1 TAB PO (08:54)
[2024-04-01] MEDS: folic acid 1 mg Tablet PO (08:54)
[2024-04-01] MEDS: sennosides-docusate Tablet 1 TAB PO (08:54)
[2024-04-01] MEDS: sodium chloride 0.9% 1,000 ML 50 ML IV (08:55)
--- NOTE | 2024-04-01 09:00 | XACV_ITS ---
Exam Room: [facility] Ht: 185 cm Wt: 121 kg BSA: 2.54 m2 Gender: Male : 1975 Any Known Allergies: No known allergies Exam Priority: Routine Indication(s): - Decreased LV systolic function Procedure(s): Procedure Description: Diagnostic procedure Procedure Description: Left Heart Catheterization Procedure Description: Coronary Angiography Diagnostic Cath Status: Urgent Diagnostic Findings * Left Main has no significant disease. * Circumflex has no significant disease. * Right Coronary Artery has no significant disease. * Proximal Left Anterior Descending: mild 30% stenosis, MADHURI: 3 flow. * Coronary angiography shows right dominance. Conclusions 1. Nonobstructive coronary artery disease. Nonischemic cardiomyopathy.. Recommendations * Aggressive medical therapy for congestive heart failure. * Outpatient cardiology follow up in 2 weeks. * Continue IV diuresis. Interventional RX Recommendation: medical therapy and/or counseling Diagnostic RX Recommendation: medical therapy and/or counseling Anticoagulation: Heparin Pressures Phase:Rest AO : 114 / 89 ( 100 ) @ 12:28:00 PM 114 / 89 ( 99 ) @ 12:28:00 PM 191 / 72 ( 38 ) @ 12:28:00 PM LV : 125 / 7 / 35 @ 12:27:00 PM 129 / 6 / 32 @ 12:28:00 PM Valves Phase:DefaultPhase AV : 6.0 @ 12:37:45 PM AV Mean Gradient: 7.0 @ 12:37:45 PM Clinical Evaluation EBL: 5mL-10mL Procedural Details Procedure Consent Obtained. Current Diagnosis : Chest Pain. Pre-Procedure Time Out. Identified patient by full name and date of as verbalized by the patient/guarantor. Does the consent match the physician's order: Yes. Accurate & Complete Informed Consent: Yes. Inpatient/Outpatient History & Physical on Chart: Yes. If H&P is completed, is and addenduem needed: No; If yes, is the addendum complete: N/A. Visualize and Verify Site with Patient/Guarantor: N/A. Relevant Radiology Images available: N/A. The risks, benefits, and alternatives of sedation and/or procedure were discussed by physician. The patient agrees to continue. Procedure started. [facility] Clinical Fraility Score: 5: Mildly Frail. Back Hoe Machine Operator Indications: LV Dysfunction. Chest Pain Symptom Assessment: Atypical Angina. Cardiovascular Instability: No. Correct patient, site and procedure confirmed by cath team. Current diagnosis: Chest Pain; LV Dysfunction. PERRLA. Strong, equal hand supervisor pit and auxiliaries bilaterally. Lungs clear x 5 lobes. IV Site on Arrival: 20 gauge in the left anticubital. Pre Procedural Pulses: bilateral posterior tibial was Doppled. Pre Procedural Pulses: bilateral dorsalis pedis was Doppled. Pre Procedural Pulses: bilateral radial was Doppled. Oxygen started at 3liters/min via nasal canula. bilateral groins was prepped with chloroprep then draped in the usual sterile fashion. right radial was prepped with chloroprep then draped in the usual sterile fashion. Physician notified. Baseline sample Acquired. HR: 99 BPM. Physician arrived. Patient's family unavailable. Physician scrubbed in. Immediate Pre-Procedure Time Out. Correct Patient: Yes; Correct Procedure: Yes; Correct Site: Yes; Correct Patient Position: Yes; Correct Supplies: Yes; Dried Flammable Prep: Yes; Blood Products Available: N/A;. Lidocaine 1% infiltrated to the right radial. Arterial access obtained. A 5 ukrainian TIG catheter in over wire. Multiple views taken of left coronary artery. Catheter redirected to the RCA. Unable to cannulate the RCA. Catheter removed over the exchange wire. A 5 ukrainian JR4 catheter in over wire. EDP Sample taken: LV Off; HR: 98 BPM; SpO2: 96%. EDP Sample taken: LV 125/7,35; HR: 102 BPM; SpO2: 94%. Pullback taken: LV 129/6,32; AO 114/89(100); Mean: 7mmHg, Peak to Peak: 6mmHg, SEP: 21sec/min; HR: 99 BPM; SpO2: 90%. Multiple views taken of right coronary artery. Catheter removed over the exchange wire. Physician review of films. Physician scrubbed out. [id number]. A TR Band was successful obtaining hemostatsis at the Right Radial artery insertion site. TR band placed. Hemostasis obtained. Post Procedure: Pulses reassessed and unchanged. PERRLA. Strong, equal hand supervisor pit and auxiliaries bilaterally. Medication waste: Lidocaine- 18 ml Nitro- 49.8 mg Heparin- 1000 units Versed- 1 mg Fentanyl- 50 mcg. Total IV fluids: 10 mL. Fluoro: 2:06. Contrast type used: Visipaque 320 mgI/mL, 100 mL bottle. Post-op diagnosis: NON ISCHEMIC CARDIOMYOPATHY. Complications: NONE. Estimated blood loss: 5mL-10mL. Responsiveness - Normal response to verbal stimuli; alert and oriented, PERRLA. Airway - Unaffected, no intervention required; spontaneous ventilation. Circulation: W/N/L, pulses unchanged. Nausea/Vomiting: No. Procedure completed. Patient transferred by bed to CPRU. Vital chart was stopped. Access Site Site: Right Radial artery Sheath Size: 6 Fr Hemostasis Method: TR Band Hemostasis Success: Successful Procedure Medications Start: 12:17 PM Stop: 12:17 PM Medication: Versed Amount: 1 mg Route: I.V. Start: 12:17 PM Stop: 12:17 PM Medication: Fentanyl Amount: 50 mcg Route: I.V. Start: 12:22 PM Stop: 12:22 PM Medication: Nitrogylcerin Amount: 200 mcg Route: I.A. Start: 12:23 PM Stop: 12:23 PM Medication: Heparin Amount: 5000 units Route: I.V. I, the attending physician, have reviewed and verified all procedure medications. Yes, all medications given per verbal order History/Risk Factors Hypertension: No Dyslipidemia: No Peripheral Arterial Disease (PAD): No Myocardial Infarction (LA): No Obesity: No Renal Disease: No Tobacco Use: Current/Recent(w/in 1 year) Prior Interventions PCI: No CABG: No Valve Surgery: No Report Signatures Finalized by Paul Roberson MD on 04/01/2024 03:31 PM
--- NOTE | 2024-04-01 10:18 | PM.PN ---
Subjective Subjective: Patient feeling much better today. Diuresing very well. Had thoracentesis performed yesterday. Vitals/I&O/Wt Last Vital Signs Temp 97.8 F 04/01/24 08:18 Pulse 113 H 04/01/24 09:02 Resp 18 04/01/24 09:02 BP 115/82 04/01/24 08:18 Pulse Ox 97 04/01/24 09:02 O2 Del Method Nasal Cannula 04/01/24 09:02 O2 Flow Rate 2 04/01/24 09:02 FiO2 3.5 03/28/24 08:37 03/31/24 04/01/24 04/01/24 22:59 06:59 14:59 Intake Total 710 / 1365 Output Total 4200 / 7225 700 / 7925 1800 / 1800 Balance -3490 / -5860 -700 / -6560 -1800 / -1800 Weight last 48 hrs Weight 257 lb 3.2 oz Weight 267 lb 8 oz Physical Exam Narrative: GENERAL: Patient is alert, awake and oriented x3. [] NECK: No jugular vein distension. [] HEENT: No cyanosis. No icterus. No pallor. [] HEART: Regular S1 and S2. No murmur, rub or gallop. [] LUNGS: Diminished air entry. CENTRAL NERVOUS SYSTEM: Grossly nonfocal. [] EXTREMITIES: Lower extremities with 1-2+ edema bilaterally. Urinary Catheter Management: James: Cath Placed During This Visit: yes Reason for Continuing Indwelling Catheter: Accurate Measurement of Urinary Output in Critically Ill Patients Urinary Catheter Date of Insertion: 03/28/24 Urinary Catheter Time of Insertion: 14:00 Data 04/01/24 05:40 04/01/24 05:40 Micro: Microbiology 03/31/24 15:02 Gram Stain - Final Pleural Fluid 03/29/24 14:45 Gram Stain - Final Peritoneal Fluid Body Fluid Culture - Preliminary A&P Assessment and plan (1) CHF (congestive heart failure): Qualifiers: Heart failure chronicity: acute Heart failure type: unspecified Qualified Code(s): I50.9 - Heart failure, unspecified (2) Liver cirrhosis: (3) Acute kidney insufficiency: (4) Pleural effusion on right: (5) Anasarca: (6) Acute hypoxic respiratory failure: Plan Plan for coronary angiogram today. N.p.o. for now. Continue IV diuresis. He is almost 19 to 20 L negative balance. Also had thoracentesis done yesterday. Clinically improving. Thank you for involving us care of this patient. We will continue to follow. Please call with questions. Attestations Medical Necessity Statement*: Care expected to cross 2 midnights. Coding Level of Care Code [facility] Diagnoses CHF (congestive heart failure) I50.9 Heart failure chronicity: acute Heart failure type: unspecified Liver cirrhosis K74.60 Acute kidney insufficiency N28.9 Pleural effusion on right J90 Anasarca R60.1 Acute hypoxic respiratory failure J96.01
[2024-04-01] MEDS: diphenhydrAMINE 50 mg Capsule PO (10:28)
--- NOTE | 2024-04-01 11:49 | W.PM.OPSUD ---
Surgery/Procedure H&P Update DATE OF PROCEDURE: April 01, 2024 DATE H&P PERFORMED: 03/30/24 H&P UPDATE INFORMATION: I have reviewed H&P completed within last 30 days, I have examined patient prior to procedure and No changes to prior documentation PREOP DIAGNOSIS: LV dysfunction PRIMARY INDICATION FOR PROCEDURE: LV dysfunction PLANNED PROCEDURE: Operation Date: 04/01/24 10:00 Proposed Procedures p Cardiac Catheterization(Not Applicable) - Paul Roberson M.D Possible percutaneous coronary intervention PATIENT REASSESSED PRIOR TO SEDATION, WITH NO CHANGE NOTED: Yes PHYSICAL EXAM: alert, oriented x 3, clear to auscultation bilaterally and regular rate & rhythm AIRWAY EVAL/ANESTHESIA PLAN: normal airway, ASA III, Local Anesthesia, Risks, benefits & alternatives of sedation and/or procedure discussed and Patient agrees to continue as planned ADDITIONAL INFORMATION: Moderate sedation
--- NOTE | 2024-04-01 12:33 | PM.PROC ---
Procedure Note: Date of procedure: 04/01/24 Pre-procedure diagnosis: LV dysfunction Post-procedure diagnosis: same Procedure: Left main artery is patent. Proximal LAD has mild 20% stenosis. Otherwise patent. Left circumflex artery is patent. RCA is patent. Nonischemic cardiomyopathy. Continue diuresis. Guideline directed medical therapy for heart failure Performing Provider: Paul Roberson Estimated blood loss (mL): 5 Complications: None Condition: stable Disposition: floor Coding Level of Care Code Acute Code for [facility] F[facility]
--- NOTE | 2024-04-01 13:22 | PC.NURSE ---
Referral faxed to Ruchi at [phone], called her at [phone] to notify her of referral being sent.
--- NOTE | 2024-04-01 13:37 | P.PN_ITS ---
Subjective 2 Subjective: seen today going for cath today Vitals/I&O/Wt Last Vital Signs Temp 97.6 F 04/01/24 12:29 Pulse 96 04/01/24 13:25 Resp 11 L 04/01/24 13:25 BP 122/89 04/01/24 13:25 Pulse Ox 99 04/01/24 13:25 O2 Del Method Room Air 04/01/24 12:29 O2 Flow Rate 2 04/01/24 09:02 FiO2 3.5 03/28/24 08:37 03/31/24 04/01/24 04/01/24 22:59 06:59 14:59 Intake Total 710 / 1365 Output Total 4200 / 7225 700 / 7925 1800 / 1800 Balance -3490 / -5860 -700 / -6560 -1800 / -1800 Weight last 48 hrs Weight 116.664 kg Weight 121.336 kg Physical Exam 2 Narrative: General: No acute distress, AO x3 HEENT: PERRLA, pupils bilaterally equal and reactive, pallors not present Chest: Reduced air entry onto the right lung. Left lung clear to auscultation. CVS: S1-S2 regular, no murmurs, no tachycardia, no gallops, no rubs Abdomen: Soft, nontender, no organomegaly, bowel sounds present Neuro: No focal deficits, no facial deformity, AO x3, Extremities: Generalized anasarca, pitting edema bilateral lower extremities 2+. Urinary Catheter Management: James: Cath Placed During This Visit: yes Reason for Continuing Indwelling Catheter: Accurate Measurement of Urinary Output in Critically Ill Patients Urinary Catheter Date of Insertion: 03/28/24 Urinary Catheter Time of Insertion: 14:00 Data 04/01/24 05:40 04/01/24 05:40 Micro: Microbiology 03/29/24 14:45 Gram Stain - Final Peritoneal Fluid Body Fluid Culture - Preliminary 03/31/24 15:02 Gram Stain - Final Pleural Fluid Body Fluid Culture - Preliminary A&P Assessment and plan (1) Acute kidney insufficiency: (2) Pleural effusion on right: (3) Acute hypoxic respiratory failure: (4) Liver cirrhosis: (5) Anasarca: Plan New onset of CHF Patient will need an angiogram once he is euvolemic This seems to be induced by alcohol, not endorsing history of methamphetamine or cocaine Will check drug screen check TSH and B12 Patient will need outpatient cardiology follow-up as well I will start him on high-dose of Bumex 2 mg IV every 8 hours with BMP every 12 hours and potassium supplementation Acute hypoxia related to CHF Pleural effusion A-fib close patient has not improved with diuresis he may need thoracentesis Hypertension: Patient will need optimization of antihypertensive regimen Full code Cardiac diet DVT prophylaxis: Heparin Abnormal D-dimer CT chest ruled out PE 03/28/2024 Patient presenting with anasarca of the last 2 to 3 months, more acutely worsened over the past 2 to 3 weeks. Presumptively he has received a diagnosis of CHF, however has not been specifically investigated for the same. Echocardiogram has been taken, results remain pending. CT of the abdomen and pelvis showing liver cirrhosis which might be the more likely etiology of his anasarca. Signs of portal hypertension noted. He has moderate ascites, right- sided pleural effusion. Currently on diuresis with Bumex 2 mg IV every 8 hours. Has had poor urine output so far, bladder scan is showing retention of [address] James catheter to enable accurate PAYAL measurement, for urinary retention. Ultrasound-guided paracentesis ordered for tomorrow. Labs including cell count, body fluid albumin and protein ordered to assess for etiology. May additionally require thoracentesis if effusion fails to improve after paracentesis. Etiology of liver cirrhosis may be related to chronic alcohol abuse. Patient states he quit drinking 1 week ago. Ethyl alcohol level is negative from 03/28/2024. Urine amphetamine screen is positive, he denies sharing needles. Will check hepatitis B and C screening. Patient consents for additional HIV testing. REGINALD panel to assess for possibly autoimmune hepatitis. UA negative for proteinuria. Continue supplemental O2 at 2 L/min to maintain sats greater than 92% 03/29/2024 Status post paracentesis today with removal of 3000 cc of peritoneal fluid. Pending body fluid analysis. Tolerating diuresis well. Currently on Bumex 2 mg IV every 8 hours. Creatinine stable at 1.2. Net -500 cc. Lower extremity edema does appear to be improving today. No signs of alcohol withdrawal. Echocardiogram showing severe diffuse hypokinesia of the left ventricle with an EF of 25%. Moderately dilated LV cavity. Moderate biatrial enlargement. Based on these results, may be cardiomyopathy leading to congestive cirrhosis. cardiology consult. Troponins 50---> 27. repeat CXR in am, if persiting large effusion, will plan on thoracentesis 03/30/2024 -Patient is status post paracentesis with 3 L of peritoneal fluid removed. Fluid analysis not consistent with SBP. ? Has a large right pleural effusion. Will order thoracentesis with fluid analysis. ? Echocardiogram does show low EF 25%. Moderately dilated left ventricular cavity. Most likely patient had cardiomyopathy leading to congestive cirrhosis. Cardiology has been consulted. ? Continue IV diuresis with Bumex 2 mg IV every 8 hours ? Continue to replete potassium as warranted ? Continue Coreg 3.125 twice daily ? Patient will need coronary angiogram prior to discharge to further evaluate cardiac status ? May also need LifeVest at discharge. Will discuss with cardiology. ? Patient will also need GI referral at discharge. CT abdomen pelvis does show cirrhotic changes in liver. 03/31/2024 -Continue oxygen supplementation to maintain sats greater than 92% ? Patient is status post paracentesis with 3 L removed. Fluid not indicative of SBP. ? EF 25% moderately dilated left ventricular cavity. Plan for cardiac cath in AM. Discussed with cardiology ? Patient to go for thoracentesis today. ? Will need GI referral at discharge. ? Counseled patient on diet as he has been eating fast food in the hospital. Discussed with him regarding the salt load, heart failure fluid overload diuresis. Patient demonstrated understanding and stated that he will quit. 04/01/2024 - patient going for angiogram today - pt is s/p thoracentesis, 1L removed, exudative however patient on active diuresis - GI referral at discharge - Cardiology to setup lifevest, patient agreeble if needed - He is 21L neg since admission, starting to see mild wrinkling on LE - continues to require 2L nC. will need o2 at discharge Attestations 2 Medical Necessity Statement*: coronary angiogram today Diagnoses Acute kidney insufficiency N28.9 Pleural effusion on right J90 Acute hypoxic respiratory failure J96.01 Liver cirrhosis K74.60 Anasarca R60.1
--- NOTE | 2024-04-01 14:52 | PC.NURSE ---
1445 - TR band removed. No bleeding or hematoma noted at this time.
[2024-04-02] VITALS (7 sets, daily range): BP systolic 100–129; BP diastolic 67–88; PULSE 96–107; RESP 16–20; TEMP 36.5–36.8; O2SAT 93–98
[2024-04-02] MEDS: bumetanide 0.25 mg/mL SDV 4 mL 2 MG IVP ×3 (02:08→17:24)
[2024-04-02 03:19] LABS: DNA AB (DS) CRITHIDIA,IFA NEGATIVE (NEGATIVE)
--- NOTE | 2024-04-02 03:23 | XRR_ITS ---
PROCEDURE INFORMATION: Exam: XR Chest Exam date and time: 04/02/2024 3:42 AM Age: 48 years old Clinical indication: Cough and shortness of breath; Additional info: Diminished lung sounds right TECHNIQUE: Imaging protocol: Radiologic exam of the chest. Views: 1 view. COMPARISON: CR XR chest 1V portable [id number] 03/31/2024 3:04 PM FINDINGS: Lungs: Unremarkable. No consolidation. Pleural spaces: Persistent opacity in the right lower lobe caused by a diminishing but still present pleural effusion and adjacent or infiltrate in the lower lobe. Heart/Mediastinum: See Vasculature finding. Vasculature: Mild cardiomegaly and uncoiling of the thoracic aorta. Bones/joints: Unremarkable. XR/XR chest 1V portable [id number] IMPRESSION: Improved but persistent opacity on the right.
[2024-04-02 03:48] LABS: ABG PCO2 49.1 mmHg (35-45); ABG PH Result 7.47 (7.35-7.45); Alveolar-Arterial Oxygen Gradi 4.8 mmHg (5-10); Arterial Blood Gas Hematocrit 47.2 % (42-52); Base Excess ABG 10.1 mmol/L (-2.0-2.0); Blood Gas Operator Identificat 600455; Blood Gas Sample Site Brachial, right; Blood Gas Sample Type Arterial; Carboxyhemoglobin 2.1 %THgb (0.4-20.1); HCO3 ABG 35.6 mmol/L (22-26); HGB O2 Sat 87.2 % (95-100); Ionized Calcium Level - ABG 1.2 mmol/L (1.1-1.4); Methemoglobin 0.8 % (0.4-1.5); Oxygen Device ROOM AIR; Oxygen Saturation ABG 89.7; PO2 FiO2 Ratio Arterial Blood 257; Potassium Level - ABG 3.5 mmol/L (3.5-5.0); Total Hemoglobin 15.4 g/dL (14-18)
[2024-04-02] MEDS: heparin 5,000 unit/mL INJ 1 mL 5000 UNIT SUBCUT ×2 (05:08→17:24)
[2024-04-02 06:33] LABS: Basophils % 0.5 %; Eosinophils # 0.2 10^3/uL (0.0-0.8); Eosinophils % 2.7 %; Hematocrit 50.6 % (37-53); Lymphocytes # 1.3 10^3/uL (0.8-4.8); Lymphocytes % 22.8 %; Mean Corpuscular HGB Conc 30.4 g/dL (30-55); Mean Corpuscular Hemoglobin 26.7 pg (27-33); Mean Corpuscular Volume 87.8 fl (82-101); Mean Platelet Volume 9.5 fL (7.4-10.4); Monocytes # 0.5 10^3/uL (0.2-0.9); Neutrophils # 3.64 10^3/uL (1.8-7.7); Neutrophils % 64.5 %; Nucleated Red Blood Cells % 0 %; Platelet Count 208 10^3/cmm (157-399); Red Blood Count 5.76 10^6/uL (3.85-5.65); Red Cell Distribution Width 17.9 % (12.1-15.1); White Blood Count 5.65 10^3/uL (3.29-11.43)
[2024-04-02 06:54] LABS: Blood Urea Nitrogen 25 mg/dL (6-20); Calcium 9.2 mg/dL (8.5-10.5); Carbon Dioxide 33 mmol/L (22-29); Chloride 100 mmol/L (98-107); Creatinine Clr Calc Pharmacy 119.1304; Glomerular Filtration Rate 80.4 mL/min (90-130); Glucose 140 mg/dL (65-115); Magnesium 2.3 mg/dL (1.7-2.3); Osmolality Calculated 299 mOsm/kg (285-295); Sodium 141 mmol/L (136-145)
[2024-04-02] MEDS: thiamine 100 mg Tablet PO (08:27)
[2024-04-02] MEDS: sennosides-docusate Tablet 1 TAB PO (08:27)
[2024-04-02] MEDS: multivitamin therapeutic Tablet 1 TAB PO (08:27)
[2024-04-02] MEDS: folic acid 1 mg Tablet PO (08:27)
[2024-04-02] MEDS: carvedilol 3.125 mg Tablet PO (08:27)
[2024-04-02] MEDS: potassium chloride ER 20 mEq Tablet 40 MEQ PO (08:28)
--- NOTE | 2024-04-02 10:17 | P.PN_ITS ---
Subjective 2 Subjective: Underwent coronary cardiogram yesterday. He has nonischemic cardiomyopathy. Discussed that with the patient. He will need LifeVest going forward. Vitals/I&O/Wt Last Vital Signs Temp 97.9 F 04/02/24 04:00 Pulse 107 H 04/02/24 08:20 Resp 16 04/02/24 08:20 BP 129/88 04/02/24 04:00 Pulse Ox 95 04/02/24 08:20 O2 Del Method Nasal Cannula 04/02/24 08:20 O2 Flow Rate 2 04/02/24 08:20 FiO2 3.5 03/28/24 08:37 04/01/24 04/02/24 04/02/24 22:59 06:59 14:59 Intake Total 1202 / 1202 1000 / 2202 Output Total 2100 / 4550 1450 / 6000 Balance -898 / -3348 -450 / -3798 Weight last 48 hrs Weight 108.272 kg Weight 116.664 kg Physical Exam 2 Narrative: General: No acute distress, AO x3 HEENT: PERRLA, pupils bilaterally equal and reactive, pallors not present Chest: Reduced air entry onto the right lung. Left lung clear to auscultation. CVS: S1-S2 regular, no murmurs, no tachycardia, no gallops, no rubs Abdomen: Soft, nontender, no organomegaly, bowel sounds present Neuro: No focal deficits, no facial deformity, AO x3, Extremities: Generalized anasarca, pitting edema bilateral lower extremities 1+. Urinary Catheter Management: James: Cath Placed During This Visit: yes Reason for Continuing Indwelling Catheter: Accurate Measurement of Urinary Output in Critically Ill Patients Urinary Catheter Date of Insertion: 03/28/24 Urinary Catheter Time of Insertion: 14:00 Data 04/02/24 06:17 04/02/24 06:17 Micro: Microbiology 03/29/24 14:45 Gram Stain - Final Peritoneal Fluid Body Fluid Culture - Final 03/31/24 15:02 Gram Stain - Final Pleural Fluid Body Fluid Culture - Preliminary 03/28/24 05:57 Blood Culture - Final Blood NO GROWTH AFTER 5 DAYS 03/28/24 05:57 Blood Culture - Final Blood NO GROWTH AFTER 5 DAYS A&P Assessment and plan (1) Acute kidney insufficiency: (2) Pleural effusion on right: (3) Acute hypoxic respiratory failure: (4) Liver cirrhosis: (5) Anasarca: Plan New onset of CHF Patient will need an angiogram once he is euvolemic This seems to be induced by alcohol, not endorsing history of methamphetamine or cocaine Will check drug screen check TSH and B12 Patient will need outpatient cardiology follow-up as well I will start him on high-dose of Bumex 2 mg IV every 8 hours with BMP every 12 hours and potassium supplementation Acute hypoxia related to CHF Pleural effusion A-fib close patient has not improved with diuresis he may need thoracentesis Hypertension: Patient will need optimization of antihypertensive regimen Full code Cardiac diet DVT prophylaxis: Heparin Abnormal D-dimer CT chest ruled out PE 03/28/2024 Patient presenting with anasarca of the last 2 to 3 months, more acutely worsened over the past 2 to 3 weeks. Presumptively he has received a diagnosis of CHF, however has not been specifically investigated for the same. Echocardiogram has been taken, results remain pending. CT of the abdomen and pelvis showing liver cirrhosis which might be the more likely etiology of his anasarca. Signs of portal hypertension noted. He has moderate ascites, right- sided pleural effusion. Currently on diuresis with Bumex 2 mg IV every 8 hours. Has had poor urine output so far, bladder scan is showing retention of [address] James catheter to enable accurate PAYAL measurement, for urinary retention. Ultrasound-guided paracentesis ordered for tomorrow. Labs including cell count, body fluid albumin and protein ordered to assess for etiology. May additionally require thoracentesis if effusion fails to improve after paracentesis. Etiology of liver cirrhosis may be related to chronic alcohol abuse. Patient states he quit drinking 1 week ago. Ethyl alcohol level is negative from 03/28/2024. Urine amphetamine screen is positive, he denies sharing needles. Will check hepatitis B and C screening. Patient consents for additional HIV testing. REGINALD panel to assess for possibly autoimmune hepatitis. UA negative for proteinuria. Continue supplemental O2 at 2 L/min to maintain sats greater than 92% 03/29/2024 Status post paracentesis today with removal of 3000 cc of peritoneal fluid. Pending body fluid analysis. Tolerating diuresis well. Currently on Bumex 2 mg IV every 8 hours. Creatinine stable at 1.2. Net -500 cc. Lower extremity edema does appear to be improving today. No signs of alcohol withdrawal. Echocardiogram showing severe diffuse hypokinesia of the left ventricle with an EF of 25%. Moderately dilated LV cavity. Moderate biatrial enlargement. Based on these results, may be cardiomyopathy leading to congestive cirrhosis. cardiology consult. Troponins 50---> 27. repeat CXR in am, if persiting large effusion, will plan on thoracentesis 03/30/2024 -Patient is status post paracentesis with 3 L of peritoneal fluid removed. Fluid analysis not consistent with SBP. ? Has a large right pleural effusion. Will order thoracentesis with fluid analysis. ? Echocardiogram does show low EF 25%. Moderately dilated left ventricular cavity. Most likely patient had cardiomyopathy leading to congestive cirrhosis. Cardiology has been consulted. ? Continue IV diuresis with Bumex 2 mg IV every 8 hours ? Continue to replete potassium as warranted ? Continue Coreg 3.125 twice daily ? Patient will need coronary angiogram prior to discharge to further evaluate cardiac status ? May also need LifeVest at discharge. Will discuss with cardiology. ? Patient will also need GI referral at discharge. CT abdomen pelvis does show cirrhotic changes in liver. 03/31/2024 -Continue oxygen supplementation to maintain sats greater than 92% ? Patient is status post paracentesis with 3 L removed. Fluid not indicative of SBP. ? EF 25% moderately dilated left ventricular cavity. Plan for cardiac cath in AM. Discussed with cardiology ? Patient to go for thoracentesis today. ? Will need GI referral at discharge. ? Counseled patient on diet as he has been eating fast food in the hospital. Discussed with him regarding the salt load, heart failure fluid overload diuresis. Patient demonstrated understanding and stated that he will quit. 04/01/2024 - patient going for angiogram today - pt is s/p thoracentesis, 1L removed, exudative however patient on active diuresis - GI referral at discharge - Cardiology to setup lifevest, patient agreeble if needed - He is 21L neg since admission, starting to see mild wrinkling on LE - continues to require 2L nC. will need o2 at discharge 04/02/2024 -We will set up LifeVest. Discussed with patient and cardiology. ? She is 23 L negative since admission. -Patient still has significant overload. End-diastolic pressure still high on cath. ? Cardiology recommends to diurese for another 24 to 48 hours and then consider discharge home on oral diuretics. ? She will need GI referral at discharge. ? Discussed with cardiology in detail. ? Continue to replete electrolytes as needed. Attestations 2 Medical Necessity Statement*: Requires continued IV diuresis at this time. Diagnoses Acute kidney insufficiency N28.9 Pleural effusion on right J90 Acute hypoxic respiratory failure J96.01 Liver cirrhosis K74.60 Anasarca R60.1
--- NOTE | 2024-04-02 12:37 | P.PN_ITS ---
<Statement entered by Paul Roberson M.D - 04/02/24 19:13> Patient was evaluated and cared for in conjunction with an advanced practice practitioner. I personally examined the patient and reviewed the chart and all pertinent data including imaging, telemetry, and laboratory results. I discussed the patient in detail with the advanced practice practitioner. Please see their note for complete progress note, results and agreed upon plan of care for the patient. Patient feeling better. Has some shortness of breath GENERAL: Patient is alert and oriented HEART: Regular S1 and S2 LUNGS: Mild crackles bilaterally EXTREMITIES: Lower extremities with 1+ edema Assesment and Plan (1) CHF (congestive heart failure) (2) Liver cirrhosis (3) Acute kidney insufficiency (4) Pleural effusion on right (5) Anasarca (6) Acute hypoxic respiratory failure (7) Non-ischemic cardiomyopathy Patient has non-ischemic cardiomyopathy. Severely elevated cardiac pressures on the cardiac cath yesterday. Continue IV diuresis. Monitor I and Os. Monitor renal function Uptitrating coreg. Initiating entresto Lifevest ordered Low sodium diet and fluid restriction. Thank you for involving us with care of this patient. We will continue to follow. Please call with questions. Subjective 2 Subjective: Patient seen this morning. He is doing well without complaints. Breathing is improved. Still has some abdominal distention as well as lower extremity edema. Lungs are clear throughout. He still requiring oxygen nasal cannula 2 L/min. He still slightly tachycardic with rates up to 107 bpm. Blood pressure stable 129/88. Yesterday he had a angiogram that showed nonischemic cardiomyopathy. He has had a good response to IV diuresis and was negative over 3 L over 24 hours. Medications: Reviewed: Yes Vitals/I&O/Wt Last Vital Signs Temp 97.9 F 04/02/24 04:00 Pulse 107 H 04/02/24 08:20 Resp 16 04/02/24 08:20 BP 129/88 04/02/24 04:00 Pulse Ox 95 04/02/24 08:20 O2 Del Method Nasal Cannula 04/02/24 08:20 O2 Flow Rate 2 04/02/24 08:20 FiO2 3.5 03/28/24 08:37 04/01/24 04/02/24 04/02/24 22:59 06:59 14:59 Intake Total 1202 / 1202 1000 / 2202 240 / 240 Output Total 2100 / 4550 1450 / 6000 350 / 350 Balance -898 / -3348 -450 / -3798 -110 / -110 Weight last 48 hrs Weight 238 lb 11.2 oz Weight 257 lb 3.2 oz Physical Exam 2 Narrative: General: No apparent distress, healthy appearing, well nourished Muskuloskeletal: Full ROM Respiratory: Normal respiratory effort, bilateral lower lobes diminished, no use of accessory muscles Cardio: No JVD, regular rate, regular rhythm, S1 S2 normal, no murmurs, 2+ radial pulse palpated bilaterally GI: Abdomen slightly distended Extremities: Patient has 2+ edema bilateral lower extremities Neuro: Alert and oriented x4, no focal motor deficits Psych: Affect normal, denies suicidal ideation, mental status grossly normal Skin: No rashes or lesions noted, no wounds Urinary Catheter Management: James: Cath Placed During This Visit: yes Reason for Continuing Indwelling Catheter: Accurate Measurement of Urinary Output in Critically Ill Patients Urinary Catheter Date of Insertion: 03/28/24 Urinary Catheter Time of Insertion: 14:00 Data 04/02/24 06:17 04/02/24 06:17 Micro: Microbiology 03/29/24 14:45 Gram Stain - Final Peritoneal Fluid Body Fluid Culture - Final 03/31/24 15:02 Gram Stain - Final Pleural Fluid Body Fluid Culture - Preliminary 03/28/24 05:57 Blood Culture - Final Blood NO GROWTH AFTER 5 DAYS 03/28/24 05:57 Blood Culture - Final Blood NO GROWTH AFTER 5 DAYS A&P Assessment and plan (1) CHF (congestive heart failure): Qualifiers: Heart failure chronicity: acute Heart failure type: unspecified Qualified Code(s): I50.9 - Heart failure, unspecified (2) Liver cirrhosis: (3) Acute kidney insufficiency: (4) Pleural effusion on right: (5) Anasarca: (6) Acute hypoxic respiratory failure: Plan The patient is overall stable but still has quite a bit of fluid to be diuresed. We will fit him for a LifeVest today. We will initiate GDMT with Entresto at a low dose with Coreg. Will increase Coreg to 6.25 mg p.o. twice daily due to sinus tachycardia. Will continue with current dosage of IV diuresis as patient has responded well to this. His radial cath site looks good. He is educated on no lifting more than 5 pounds for 3 days from procedure date. Attestations 2 Medical Necessity Statement*: Requires continued IV diuresis at this time. Coding Level of Care Code Acute Code for [facility] Diagnoses CHF (congestive heart failure) I50.9 Heart failure chronicity: acute Heart failure type: unspecified Liver cirrhosis K74.60 Acute kidney insufficiency N28.9 Pleural effusion on right J90 Anasarca R60.1 Acute hypoxic respiratory failure J96.01
[2024-04-02] MEDS: sacubitril/valsartan 24-26 mg Tablet 1 EACH PO (17:25)
[2024-04-02] MEDS: carvedilol 6.25 mg Tablet PO (17:25)
[2024-04-03] VITALS (7 sets, daily range): BP systolic 110–126; BP diastolic 56–87; PULSE 89–107; RESP 15–19; TEMP 36.4–36.6; O2SAT 92–96
[2024-04-03] MEDS: bumetanide 0.25 mg/mL SDV 4 mL 2 MG IVP (00:31)
[2024-04-03] MEDS: heparin 5,000 unit/mL INJ 1 mL 5000 UNIT SUBCUT (03:42)
[2024-04-03 05:16] LABS: Basophils % 0.5 %; Eosinophils # 0.2 10^3/uL (0.0-0.8); Eosinophils % 2.6 %; Hematocrit 50.6 % (37-53); Lymphocytes # 1.3 10^3/uL (0.8-4.8); Mean Corpuscular HGB Conc 30.2 g/dL (30-55); Mean Corpuscular Hemoglobin 27.2 pg (27-33); Mean Corpuscular Volume 89.9 fl (82-101); Monocytes # 0.6 10^3/uL (0.2-0.9); Monocytes % 10.8 %; Neutrophils # 3.71 10^3/uL (1.8-7.7); Neutrophils % 63.9 %; Nucleated Red Blood Cells % 0 %; Platelet Count 193 10^3/cmm (157-399); Red Blood Count 5.63 10^6/uL (3.85-5.65); Red Cell Distribution Width 17.8 % (12.1-15.1); White Blood Count 5.81 10^3/uL (3.29-11.43)
[2024-04-03 05:34] LABS: Anion Gap 11.7 (5-19); Blood Urea Nitrogen 20 mg/dL (6-20); Calcium 8.9 mg/dL (8.5-10.5); Carbon Dioxide 32 mmol/L (22-29); Chloride 102 mmol/L (98-107); Creatinine Clr Calc Pharmacy 116.5015; Glomerular Filtration Rate 80.4 mL/min (90-130); Glucose 115 mg/dL (65-115); Magnesium 2.3 mg/dL (1.7-2.3); Osmolality Calculated 298 mOsm/kg (285-295); Potassium 3.7 mmol/L (3.5-5.1); Sodium 142 mmol/L (136-145)
[2024-04-03] MEDS: acetaminophen 500 mg Tablet PO (06:43)
[2024-04-03] MEDS: sacubitril/valsartan 24-26 mg Tablet 1 EACH PO (08:42)
[2024-04-03] MEDS: folic acid 1 mg Tablet PO (08:42)
[2024-04-03] MEDS: sennosides-docusate Tablet 1 TAB PO (08:42)
[2024-04-03] MEDS: carvedilol 6.25 mg Tablet 12.5 MG PO (08:42)
[2024-04-03] MEDS: potassium chloride ER 20 mEq Tablet 40 MEQ PO (08:42)
[2024-04-03] MEDS: multivitamin therapeutic Tablet 1 TAB PO (08:43)
[2024-04-03] MEDS: thiamine 100 mg Tablet PO (08:43)
--- NOTE | 2024-04-03 09:46 | PM.PN ---
Subjective Subjective: Patient doing well. No chest pain. Vitals/I&O/Wt Last Vital Signs Temp 97.9 F 04/03/24 08:00 Pulse 104 H 04/03/24 08:44 Resp 16 04/03/24 08:44 BP 124/87 04/03/24 08:00 Pulse Ox 95 04/03/24 08:44 O2 Del Method Room Air 04/03/24 08:44 O2 Flow Rate 2 04/02/24 08:20 FiO2 3.5 03/28/24 08:37 04/02/24 04/03/24 04/03/24 22:59 06:59 14:59 Intake Total 476 / 1076 600 / 1676 236 / 236 Output Total 900 / 3700 3400 / 7100 Balance -424 / -2624 -2800 / -5424 236 / 236 Weight last 48 hrs Weight 227 lb 9.6 oz Weight 238 lb 11.2 oz Physical Exam Narrative: GENERAL: Patient is alert, awake and oriented x3. [] NECK: No jugular vein distension. [] HEENT: No cyanosis. No icterus. No pallor. [] HEART: Regular S1 and S2. No murmur, rub or gallop. [] LUNGS: Diminished air entry. CENTRAL NERVOUS SYSTEM: Grossly nonfocal. [] EXTREMITIES: Lower extremities with 1-2+ edema bilaterally. Urinary Catheter Management: James: Cath Placed During This Visit: yes Reason for Continuing Indwelling Catheter: Acute Urinary Retention or Obstruction Urinary Catheter Date of Insertion: 03/28/24 Urinary Catheter Time of Insertion: 14:00 Data 04/03/24 04:48 04/03/24 04:48 Micro: Microbiology 03/29/24 14:45 Gram Stain - Final Peritoneal Fluid Body Fluid Culture - Final 03/31/24 15:02 Gram Stain - Final Pleural Fluid Body Fluid Culture - Preliminary 03/28/24 05:57 Blood Culture - Final Blood NO GROWTH AFTER 5 DAYS 03/28/24 05:57 Blood Culture - Final Blood NO GROWTH AFTER 5 DAYS A&P Assessment and plan (1) CHF (congestive heart failure): Qualifiers: Heart failure chronicity: acute Heart failure type: unspecified Qualified Code(s): I50.9 - Heart failure, unspecified (2) Liver cirrhosis: (3) Acute kidney insufficiency: (4) Pleural effusion on right: (5) Anasarca: (6) Acute hypoxic respiratory failure: Plan Patient is diuresing well. Switch to p.o. Bumex. Continue carvedilol. Entresto. Patient has LifeVest. Low-sodium diet and fluid restriction recommended. Daily weights. Close cardiology follow-up. Attestations Medical Necessity Statement*: Care expected to cross 2 midnights. Coding Level of Care Code Acute Code for [facility] Diagnoses CHF (congestive heart failure) I50.9 Heart failure chronicity: acute Heart failure type: unspecified Liver cirrhosis K74.60 Acute kidney insufficiency N28.9 Pleural effusion on right J90 Anasarca R60.1 Acute hypoxic respiratory failure J96.01
[2024-04-03] MEDS: bumetanide 0.25 mg/mL SDV 10 mL 2 MG IVP (10:44)
--- NOTE | 2024-04-03 11:06 | P.DS_ITS ---
Discharge Providers Date of Admission: 03/28/24 14:00 Date of Discharge: April 03, 2024 Attending Provider at Admission: Wilda Mera MD Attending Provider at Discharge: Darcie Javier MD Primary Care Provider: RICHARD Guzman Diagnoses at Discharge Discharge Diagnosis (1) CHF (congestive heart failure): Status: Acute Qualifiers: Heart failure chronicity: acute Heart failure type: unspecified Qualified Code(s): I50.9 - Heart failure, unspecified (2) Liver cirrhosis: Status: Acute (3) Acute kidney insufficiency: Status: Resolved (4) Pleural effusion on right: Status: Resolved (5) Anasarca: Status: Acute (6) Acute hypoxic respiratory failure: Status: Resolved Reason for Visit Reason for Visit: SOB feet extreamly swollen Hospital Course Hospital Course Patient presented to the hospital with new onset CHF and possible new onset liver cirrhosis. EF found to be 25% on echo. CT abdomen pelvis did show liver cirrhosis. He had generalized anasarca. Also had right-sided pleural effusion for which she underwent thoracentesis. It was exudate by lab values however this was done after several days of IV Bumex. Most likely secondary to CHF versus cirrhosis. No empyema suspected. Patient underwent coronary angiogram once he was euvolemic and was found to have nonobstructive coronary artery disease nonischemic cardiomyopathy. Patient is 25 L negative at time of discharge. Patient was sent home with oral diuretics and Entresto was started during hospitalization. Patient was counseled to refrain from drug use. Patient was given Geodon. Discharge advised to follow-up with cardiology as an outpatient. LifeVest was also set up for the patient. All questions answered. Patient was also counseled on watching his diet and refrain from fast food and high salt loads. He was asked to come back to the ED experience any chest pain shortness of breath or worsening edema. Physical Exam Narrative: General: No acute distress, AO x3 HEENT: PERRLA, pupils bilaterally equal and reactive, pallors not present Chest: generally clear to auscultation with diminished sounds at bases. CVS: S1-S2 regular, no murmurs, no tachycardia, no gallops, no rubs Abdomen: Soft, nontender, no organomegaly, bowel sounds present Neuro: No focal deficits, no facial deformity, AO x3, Extremities: Generalized anasarca, pitting edema bilateral lower extremities 1+. Urinary Catheter Management: James: Cath Placed During This Visit: yes Reason for Continuing Indwelling Catheter: Acute Urinary Retention or Obstruction Urinary Catheter Date of Insertion: 03/28/24 Urinary Catheter Time of Insertion: 14:00 Discharge Data Studies Completed and Pending Completed Studies During Hospitalization Category Date Time Status CT angio chest w abd pel w con Stat Cat Scan 03/28/24 04:20 Completed INSTRUMENT MAKER request for service Routine Exams 04/01/24 09:00 Completed CXRP [XR chest 1V portable [id number]] AM LABS Exams 03/30/24 04:00 Completed XR chest 1V portable [id number] Stat Exams 03/28/24 03:15 Completed XR chest 1V portable [id number] Stat Exams 03/31/24 14:45 Completed XR chest 1V portable [id number] Stat Exams 04/02/24 03:23 Completed CV. echo complete* [id number] Stat Ultrasound 03/28/24 04:21 [place]acent[place] w [id number] Routine Ultrasound 03/29/24 06:00 Completed US thoracentesis [id number] Routine Ultrasound 03/31/24 07:00 Completed Pending at discharge Category Date Time Status Amylase, Pleural Fluid Routine Lab 03/30/24 16:36 Received REGINALD Profile Rheumatology AM LABS Lab 03/29/24 06:13 Results Body Fluid Culture & GS Routine Lab 03/30/24 16:36 Results Mycobacteria, Culture w/Fluor Routine Lab 03/30/24 16:36 Received Radiology Impressions Chest/Abdomen/Pelvis CT 03/28/24 04:20 IMPRESSION: 1. No pulmonary embolism. 2. Large right pleural effusion with mild pulmonary edema. 3. Near complete collapse of the right lower and middle lobes. IMPRESSION: Cirrhotic liver morphology with sequela of portal hypertension including splenomegaly and moderate volume ascites. Paracentesis Ultrasound 03/29/24 06:00 IMPRESSION: Uncomplicated paracentesis yielding 3000 ml of peritoneal fluid. Thoracentesis Ultrasound 03/31/24 07:00 IMPRESSION: 1. Uncomplicated ultrasound-guided RIGHT thoracentesis. 2. Removal of 1000 cc 3. No pneumothorax on the post thoracentesis radiograph Chest X-Ray 04/02/24 03:23 IMPRESSION: Improved but persistent opacity on the right. Laboratory Results WBC 5.81 10^3/uL (3.29-11.43) 04/03/24 04:48 RBC 5.63 10^6/uL (3.85-5.65) 04/03/24 04:48 Hgb 15.30 g/dL (11.27-16.99) 04/03/24 04:48 Hct 50.6 % (37-53) 04/03/24 04:48 MCV 89.9 fl (82-101) 04/03/24 04:48 MCH 27.2 pg (27-33) 04/03/24 04:48 MCHC 30.2 g/dL (30-55) 04/03/24 04:48 RDW 17.8 % (12.1-15.1) H 04/03/24 04:48 Plt Count 193 10^3/cmm (157-399) 04/03/24 04:48 MPV 10.0 fL (7.4-10.4) 04/03/24 04:48 Neut % (Auto) 63.9 % 04/03/24 04:48 Lymph % (Auto) 22.0 % 04/03/24 04:48 Terry % (Auto) 10.8 % 04/03/24 04:48 Eos % (Auto) 2.6 % 04/03/24 04:48 Baso % (Auto) 0.5 % 04/03/24 04:48 Neut # (Auto) 3.71 10^3/uL (1.8-7.7) 04/03/24 04:48 Lymph # (Auto) 1.3 10^3/uL (0.8-4.8) 04/03/24 04:48 Terry # (Auto) 0.6 10^3/uL (0.2-0.9) 04/03/24 04:48 Eos # (Auto) 0.2 10^3/uL (0.0-0.8) 04/03/24 04:48 Baso # (Auto) 0.0 10^3/uL (0.0-0.1) 04/03/24 04:48 Nucleated RBC % (auto) 0 % 04/03/24 04:48 Nucleated RBCs # 0.0 /100WBC 04/03/24 04:48 Differential Comment Yes 03/31/24 15:02 PT 15.20 SECONDS (12.1-14.9) H 03/31/24 06:33 INR 1.17 (0.8-1.2) 03/31/24 06:33 D-Dimer 5.24 ug/mLFEU (0-0.59) H 03/28/24 03:40 Specimen Type Arterial 04/02/24 03:24 Sample Site Brachial, right 04/02/24 03:24 ABG pH 7.47 (7.35-7.45) H 04/02/24 03:24 ABG pCO2 49.1 mmHg (35-45) H 04/02/24 03:24 ABG pO2 54.0 mmHg (80.0-100.0) L 04/02/24 03:24 ABG PO2/FiO2 Ratio 257 04/02/24 03:24 ABG HCO3 35.6 mmol/L (22-26) H 04/02/24 03:24 ABG O2 Saturation 89.7 04/02/24 03:24 ABG Base Excess 10.1 mmol/L (-2.0-2.0) H 04/02/24 03:24 Junaid Test N/a 04/02/24 03:24 A-a O2 Gradient 4.8 mmHg (5-10) L 04/02/24 03:24 Hematocrit 47.2 % (42-52) 04/02/24 03:24 Hgb O2 Saturation 87.2 % (95-100) L 04/02/24 03:24 Carboxyhemoglobin 2.1 %THgb (0.4-20.1) 04/02/24 03:24 Methemoglobin 0.8 % (0.4-1.5) 04/02/24 03:24 Total Hemoglobin 15.4 g/dL (14-18) 04/02/24 03:24 Sodium 142.0 mmol/L (131-143) 04/02/24 03:24 Potassium 3.5 mmol/L (3.5-5.0) 04/02/24 03:24 Glucose 126.0 mg/dL (70-115) H 04/02/24 03:24 Ionized Calcium 1.2 mmol/L (1.1-1.4) 04/02/24 03:24 O2 Delivery Device Room air 04/02/24 03:24 O2 Liters/Min 2.0 % 03/28/24 05:12 FiO2 21.0 % 04/02/24 03:24 Electronic News Gathering Camera Person ID [id number] 04/02/24 03:24 Sodium 142 mmol/L (136-145) 04/03/24 04:48 Potassium 3.7 mmol/L (3.5-5.1) 04/03/24 04:48 Chloride 102 mmol/L (98-107) 04/03/24 04:48 Carbon Dioxide 32 mmol/L (22-29) H 04/03/24 04:48 Anion Gap 11.7 (5-19) 04/03/24 04:48 BUN 20 mg/dL (6-20) 04/03/24 04:48 Creatinine 1.0 mg/dL (0.7-1.2) 04/03/24 04:48 GFR Calculation 80.4 mL/min (90-130) L 04/03/24 04:48 Glucose 115 mg/dL (65-115) 04/03/24 04:48 Calculated Osmolality 298 mOsm/kg (285-295) H 04/03/24 04:48 Lactic Acid 2.1 mmol/L (0.5-2.2) 03/28/24 03:40 Lactic Acid (Sepsis) 3.0 mmol/L (0.5-2.2) H 03/28/24 06:55 Calcium 8.9 mg/dL (8.5-10.5) 04/03/24 04:48 Phosphorus 5.3 mg/dL (2.5-4.5) H 03/28/24 03:40 Magnesium 2.3 mg/dL (1.7-2.3) 04/03/24 04:48 Total Bilirubin 1.9 mg/dL (0.15-1.2) H 03/31/24 05:21 AST 24 U/L (0-40) 03/31/24 05:21 ALT 20 U/L (0-41) 03/31/24 05:21 Alkaline Phosphatase 227 U/L (40-130) H 03/31/24 05:21 Lactate Dehydrogenase 256 U/L (135-225) H 03/31/24 05:21 Troponin T Baseline 52 ng/L (0-15) H 03/28/24 03:40 Troponin T 120 Minute 44.13 ng/L (0-15) H 03/28/24 05:57 Delta Troponin T -7.87 ABS# (0-10) L 03/28/24 05:57 Troponin T Hi Sens 6Hr 27.44 ng/L (0-15) H 03/28/24 10:22 Troponin T Hi Sens 6Hr Delta -24.56 ng/L (0-12) L 03/28/24 10:22 NT-Pro-B Natriuret Pep 06978 pg/mL (0-125) H 03/28/24 03:40 NT-Pro-B Natriuret Pep Cancelled 03/28/24 03:40 Total Protein 5.8 g/dL (6.6-8.7) L 03/31/24 05:21 Albumin 3.4 g/dL (3.5-5.2) L 03/31/24 05:21 Globulin 2.4 g/dL (1.3-4.6) 03/31/24 05:21 Vitamin B12 1394 pg/mL (232-1245) H 03/28/24 05:57 Procalcitonin 0.20 ng/mL (0-0.5) 03/28/24 03:40 TSH 4.28 uIU/mL (0.27-4.20) H 03/28/24 05:57 Urine Color Yellow (Yellow) 03/28/24 05:36 Urine Appearance Clear (CLEAR) 03/28/24 05:36 Urine pH 5.5 (5-7) 03/28/24 05:36 Ur Specific [place] 1.022 (1.005-1.030) 03/28/24 05:36 Urine Protein Negative (Negative) 03/28/24 05:36 Urine Glucose (UA) Negative (Normal) 03/28/24 05:36 Urine Ketones Negative (Negative) 03/28/24 05:36 Urine Blood Negative (Negative) 03/28/24 05:36 Urine Nitrate Negative (Negative) 03/28/24 05:36 Urine Bilirubin Negative (Negative) 03/28/24 05:36 Urine Urobilinogen 1.0 mg/dL (Negative) 03/28/24 05:36 Ur Leukocyte Esterase Negative (Negative) 03/28/24 05:36 Urine RBC 0-4 /hpf (0-2) H 03/28/24 05:36 Urine WBC 0-4 /hpf (0-5) H 03/28/24 05:36 Ur Squamous Epith Cells 0-4 /hpf (0-5) H 03/28/24 05:36 Amorphous Sediment Not Reportable 03/28/24 05:36 Urine Bacteria Trace /hpf (NONE) 03/28/24 05:36 Fluid Color Thalia 03/31/24 15:02 Fluid Appearance Cloudy 03/31/24 15:02 Fluid WBC 155 /uL 03/31/24 15:02 Fluid RBC 6.000 10^3/uL 03/31/24 15:02 Fluid Hematocrit 0.1 % 03/31/24 15:02 Fld Polynuclear WBCs # 0.018 03/31/24 15:02 Fld Polynuclear WBCs % 11.700 % 03/31/24 15:02 Fl Mononucl WBCs #(Auto) 0.137 03/31/24 15:02 Fl Mononuclear % Auto 88.300 % 03/31/24 15:02 Fld Crystal Laterality Pleural fluid 03/31/24 15:02 Fluid Albumin 2.4 g/dL 03/31/24 15:02 Fluid LDH 151 U/L 03/29/24 14:45 Fluid Creatinine 0.99 (0.7-1.2) 03/31/24 15:02 Pleural pH 7.50 (6.5-7.5) 03/31/24 15:02 Pleural Total Protein 3.6 g/dL 03/31/24 15:02 Pleural LDH 150 U/L 03/31/24 15:02 Pleural Glucose 145.0 mg/dL 03/31/24 15:02 Pleural Triglycerides 41 mg/dL 03/31/24 15:02 Urine Opiates Screen Negative ng/mL (Negative) 03/28/24 05:36 Ur Barbiturates Screen Negative ng/mL (Negative) 03/28/24 05:36 Ur Phencyclidine Scrn Negative ng/mL (Negative) 03/28/24 05:36 Ur Amphetamines Screen Positive ng/mL (Negative) H 03/28/24 05:36 U Benzodiazepines Scrn Negative ng/mL (Negative) 03/28/24 05:36 Urine Cocaine Screen Negative ng/mL (Negative) 03/28/24 05:36 U Marijuana (THC) Screen Negative ng/mL (Negative) 03/28/24 05:36 Ethyl Alcohol < 10 mg/dL (0-10) 03/28/24 03:40 ANN-1 Antibody <1.0 neg AI (<1.0 NEG) 03/29/24 06:13 SS-A Antibody <1.0 neg AI (<1.0 NEG) 03/29/24 06:13 SS-B Antibody <1.0 neg AI (<1.0 NEG) 03/29/24 06:13 Sm (Wyatt) Antibody <1.0 neg AI (<1.0 NEG) 03/29/24 06:13 INTE[employer]ATED [employer]ICATOR Antibody 3.1 pos AI (<1.0 NEG) A 03/29/24 06:13 Scl-70 Antibody <1.0 neg AI (<1.0 NEG) 03/29/24 06:13 Anti-ds DNA IgG (Crith) Negative (NEGATIVE) 03/29/24 06:13 Centromere B Antibody <1.0 neg AI (<1.0 NEG) 03/29/24 06:13 Thyroid Peroxidase Ab 1 IU/mL (<9) 03/29/24 06:13 Complement C3c 99 mg/dL (82-185) 03/29/24 06:13 Complement C4c 19 mg/dL (15-53) 03/29/24 06:13 CH50 Classical Pathway 48 U/mL (31-60) 03/29/24 06:13 Hepatitis A IgM Ab Non-reactive (Nonreactive) 03/29/24 06:13 Hep Bs Antigen Non-reactive (Nonreactive) 03/29/24 06:13 Hep Bs Antibody < 3.5 (11.5-1000) L 03/29/24 06:13 Hep B Core Total Ab Non-reactive (Nonreactive) 03/29/24 06:13 Hepatitis C Antibody Non-reactive (Nonreactive) 03/29/24 06:13 HIV 1&2 Ab & HIV 1 Ag Non-reactive (Non-Reactiv) 03/29/24 06:13 HIV 1&2 Antibody Non-reactive (Non-Reactiv) 03/29/24 06:13 Vitals Last Vital Signs Temp 97.9 F 04/03/24 08:00 Pulse 104 H 04/03/24 08:44 Resp 16 04/03/24 08:44 BP 124/87 04/03/24 08:00 Pulse Ox 95 04/03/24 08:44 O2 Del Method Room Air 04/03/24 08:44 O2 Flow Rate 2 04/02/24 08:20 FiO2 3.5 03/28/24 08:37 Discharge Plan Discharge Patient Disposition: Home Condition: Stable Prescriptions: New carvedilol 6.25 mg Tablet 12.5 mg PO BID Qty: 60 0RF sennosides-docusate sodium [Stool Softener-Laxative] 8.6-50 mg Tablet 1 tab PO DAILY Qty: 14 0RF potassium chloride [Klor-Con M20] 20 mEq Tablet,Er Particles/Crystals 40 meq PO DAILY Qty: 30 0RF thiamine mononitrate (vit B1) [Vitamin B-1 (mononitrate)] 100 mg Tablet 100 mg PO DAILY Qty: 30 0RF multivitamin with folic acid [Thera] 400 mcg Tablet 1 tab PO DAILY Qty: 30 0RF sacubitril-valsartan [Entresto] 24-26 mg Tablet 1 tab PO BID Qty: 30 0RF Changed bumetanide 2 mg Tablet 2 mg PO TID Qty: 90 0RF Discontinued furosemide [Lasix] 40 mg Tablet 40 mg PO QAM carvedilol 6.25 mg Tablet 6.25 mg PO BID Rx Instructions: must administer with a meal/food potassium chloride 10 mEq Tablet Extended Release 10 meq PO DAILY Discharge Orders: Discharge Order (Routine); Ordered 04/03/24 Ordered By: Darcie Javier Referrals: Megha Rey NP [Nurse Practitioner] - 7-10 days (We have notified your physician's clinic of the need for a follow-up appointment to be scheduled. If you have not heard from them within the next 2 business days, please call them directly. ) Davian Vick MD [Referring] - 2 weeks ( We have notified your physician's clinic of the need for a follow-up appointment to be scheduled. If you have not heard from them within the next 2 business days, please call them directly. ) Waqas Spencer PA [Primary Care Provider] - 4-7 days (Contact [facility] at [phone] for a hospital stay follow-up apt) Discharge Diet: Cardiac Discharge Activity: Oxygen as instructed Patient Instructions: Bumetanide (By mouth) (Bumex), Potassium Chloride (By mouth), Thiamine (By mouth), Laxative, Stool Softeners (By mouth), Multivitamins, Adult Formula (By mouth), Carvedilol (By mouth), Sacubi tril/Valsartan (By mouth), Cirrhosis of the Liver (DC), CHF Stoplight, Opioid Safety Discharge Attestations Time Spent in Discharge Care*: greater than 30 min Quality Metrics Clinical Quality Measures [ No reported AMI, CVA or VTE this stay] Coding Level of Care Code Acute Code for Chg Fwd Diagnoses CHF (congestive heart failure) I50.9 Heart failure chronicity: acute Heart failure type: unspecified Liver cirrhosis K74.60 Acute kidney insufficiency N28.9 Pleural effusion on right J90 Anasarca R60.1 Acute hypoxic respiratory failure J96.01
--- NOTE | 2024-04-03 13:12 | PC.NURSE ---
In patient's chart to work up discharge.
[2024-04-05 19:49] LABS: ANA SCREEN, IFA POSITIVE (NEGATIVE)
[2024-04-06 20:45] LABS: Amylase, Pleural Fluid 18 U/L
== END 2024-04-03 14:20 | disposition home or self-care (01) | DRG 286 ==
LOC: ER 05:45 → MEDSURG 06:58
PROVIDERS: Family Medicine; Internal Medicine; Nurse Practitioner Family; Student in an Organized Health Care Education/Training Program; Admitting Provider Internal Medicine; Emergency Provider Emergency Medicine; PCP Physician Assistant Medical; Visit Provider Internal Medicine
PROC: 4A023N7 Measurement of Cardiac Sampling and Pressure, Left Heart, Percutaneous Approach (ICD-10-PCS; principal; 2024-04-01 10:00)
DX: I11.0 Hypertensive heart disease with heart failure (principal); I50.21 Acute systolic (congestive) heart failure; J96.01 Acute respiratory failure with hypoxia; N17.9 Acute kidney failure, unspecified; J90 Pleural effusion, not elsewhere classified; K76.6 Portal hypertension; I42.8 Other cardiomyopathies; K70.30 Alcoholic cirrhosis of liver without ascites; F10.20 Alcohol dependence, uncomplicated; F17.290 Nicotine dependence, other tobacco product, uncomplicated; Z82.49 Family history of ischemic heart disease and other diseases of the circulatory system; F15.90 Other stimulant use, unspecified, uncomplicated
CPT/HCPCS: 32555; 36415; 36600; 49083; 51702; 51798; 71045; 71275; 74177; 80048; 80051; 80053; 80306; 80307; 80503; 81001; 82042; 82150; 82330; 82570; 82607; 82805; 82945; 83605; 83615; 83735; 83880; 83986; 84100; 84145; 84157; 84443; 84478; 84484; 85014; 85025; 85378; 85610; 86160; 86162; 86235; 86255; 86376; 86705; 86706; 86709; 86803; 87015; 87040; 87070; 87075; 87116; 87205; 87206; 87340; 87801; 87806; 89050; 93005; 93306; 93458; 94664; 94760; 96372; 96374; 99152; 99285; C1769; C1887; C1894; G0378; J1644; J1940; J2060; J2250; J3010; J3490; J7030; J7050; Q0163; Q9967

== ENCOUNTER → 2024-04-29 17:10 | Outpatient (BNVA) | payer MEDICAID, SELFPAY | PROVIDERS: PCP Physician Assistant Medical; Visit Provider Nurse Practitioner Family | DX: I50.9 Heart failure, unspecified (principal); I10 Essential (primary) hypertension | CPT/HCPCS: 36415; 80048; 83880; 85025 ==

== ENCOUNTER 2024-08-12 15:01 | Outpatient (CLI) | payer MEDICAID, SELFPAY ==
--- NOTE | 2024-08-12 06:15 | USCV_ITS ---
Alfred Spencer Age: 49 Gender: M : 1975 Exam Date: 08/12/2024 15:12 Ordering Phys: Megha Rey NP Technologist: LADONNA Exam Location: [facility] [place] Indication: Systolic Heart Failure BP: 108 / 73 HR: 84 Rhythm: Sinus Technical Quality: Adequate MEASUREMENTS (Male / Female) Normal Values 2D ECHO LV Diastolic Diameter PLAX 6.3 cm 4.2 - 5.9 / 3.9 - 5.3 cm IVS Diastolic Thickness 1.5 cm 0.6 - 1.0 / 0.6 - 0.9 cm IVS Systolic Thickness 1.9 cm LVPW Diastolic Thickness 1.0 cm 0.6 - 1.0 / 0.6 - 0.9 cm LVPW Systolic Thickness 1.5 cm LVOT Diameter 2.1 cm LV Ejection Fraction 2D Teich 55.3 % LV Ejection Fraction MOD 4C 50.4 % LV Ejection Fraction MOD 2C 34.6 % LV Ejection Fraction 2C AL 34.2 % LA Diameter 3.7 cm RA Systolic Volume 4C AL 39.4 ml RA Systolic Volume 4C MOD 37.9 ml LA Sys Volume AL 56.6 cm cubed LA Sys Volume Index AL 23.3 cm cubed/m squared Aorta at Sinotubular Diameter 2.7 cm IVC Diameter 1.7 cm M-MODE LA Ao Ratio MM 1.3 AV Cusp Separation MM 1.6 cm DOPPLER AV Peak Velocity 139.0 cm/s LVOT Peak Velocity 102.0 cm/s AV Area Cont Eq vti 2.6 cm squared AV Area Cont Eq pk 2.5 cm squared MV Peak Velocity 84.0 cm/s MV Area PHT 3.6 cm squared Mitral E to A Ratio 0.8 TR Peak Velocity 168.0 cm/s TR Peak Gradient 11.3 mmHg TV Peak E Velocity 69.0 cm/s PV Peak Velocity 127.0 cm/s FINDINGS Left Ventricle Normal left ventricular size, systolic function and wall thickness, with no regional wall motion abnormalities. Left ventricular ejection fraction is estimated at 60 %. Grade I/IV diastolic dysfunction (abnormal relaxation filling pattern), normal to mildly elevated filling pressures. Right Ventricle The right ventricle is normal in size and function. Right Atrium The right atrium is normal in size. Left Atrium The left atrium is normal in size. Mitral Valve Moderately thickened mitral valve. Moderate mitral annular calcification. No mitral valve stenosis. Mild-moderate mitral valve regurgitation. Aortic Valve Moderate aortic valve calcification. Moderate aortic valve calcification. Aortic valve sclerosis without stenosis. Trace aortic valve regurgitation. Tricuspid Valve Structurally normal tricuspid valve without significant stenosis or regurgitation. Pulmonary artery systolic pressure is normal. Pulmonic Valve Structurally normal pulmonic valve without significant stenosis. There is no pulmonic regurgitation. Pericardium Normal pericardium without effusion. Aorta Normal ascending aorta dimension. IVC The inferior vena cava appears normal. CONCLUSIONS Normal left ventricular size, systolic function and wall thickness, with no regional wall motion abnormalities. Left ventricular ejection fraction is estimated at 60 %. Grade I/IV diastolic dysfunction (abnormal relaxation filling pattern), normal to mildly elevated filling pressures. Moderate aortic valve calcification. Moderate aortic valve calcification. Aortic valve sclerosis without stenosis. Trace aortic valve regurgitation. Moderately thickened mitral valve. Moderate mitral annular calcification. No mitral valve stenosis. Mild-moderate mitral valve regurgitation. There is no pericardial effusion. Right atrial pressure is around 5 mm of mercury. Wilda Singh MD (Electronically Signed) Final Date: 13 Aug 2024 12:24 S
== END 2024-08-12 15:02 | disposition home or self-care (01) ==
LOC: RAD 15:02
PROVIDERS: PCP Physician Assistant Medical; Visit Provider Nurse Practitioner Family
DX: I50.9 Heart failure, unspecified (principal); R93.1 Abnormal findings on diagnostic imaging of heart and coronary circulation; I34.81 Nonrheumatic mitral (valve) annulus calcification; I34.0 Nonrheumatic mitral (valve) insufficiency; I35.8 Other nonrheumatic aortic valve disorders
CPT/HCPCS: 93306

== ENCOUNTER → 2025-02-14 15:42 | Outpatient (BNVA) | payer MEDICAID, SELFPAY | PROVIDERS: PCP Family Medicine; Visit Provider Family Medicine | DX: R76.89 Other specified abnormal immunological findings in serum (principal); K74.60 Unspecified cirrhosis of liver | CPT/HCPCS: 82977; 83615; 84450; 84460; 86038; 86140; 86235 ==

== ENCOUNTER 2025-03-24 11:42 | Outpatient (CLI) | payer MEDICAID, SELFPAY ==
--- NOTE | 2025-03-24 11:45 | US_ITS ---
WS: [id number] ABDOMINAL ULTRASOUND LIMITED REASON FOR VISIT: liver cirrhosis on CT TECHNIQUE: Grayscale and Doppler ultrasound examination of the abdomen. FINDINGS: Pancreas: Poorly visualized. No gross abnormality. Abdominal aorta and IVC: Normal Liver: Liver measures 14.5 cm in length. Significant homogeneous echogenicity of the liver without focal lesion. Enlarged left lobe of the liver. Normal portal venous blood flow. Gallbladder: Gallbladder wall thickness measures 0.2 mm. No gallbladder calculi. Small phrygian cap. Right kidney: Right kidney measures 10.8 cm x 6.3 cm x 6.1 cm. Right kidney cortex measures 1.1 cm. No mass, calculus, or hydronephrosis. No ascites US/US liver [id number] IMPRESSION: Nonspecific liver findings. Compatible with cirrhosis.
== END 2025-03-24 11:43 | disposition home or self-care (01) ==
LOC: RAD 11:42
PROVIDERS: PCP Family Medicine; Visit Provider Family Medicine
DX: K74.60 Unspecified cirrhosis of liver (principal); R16.0 Hepatomegaly, not elsewhere classified; K82.8 Other specified diseases of gallbladder
CPT/HCPCS: 76705

== ENCOUNTER → 2025-04-12 11:31 | Outpatient (BNVA) | payer MEDICAID, SELFPAY | PROVIDERS: PCP Family Medicine; Visit Provider Family Medicine | DX: I50.9 Heart failure, unspecified (principal); I42.8 Other cardiomyopathies; K70.30 Alcoholic cirrhosis of liver without ascites; M32.9 Systemic lupus erythematosus, unspecified | CPT/HCPCS: 80053; 84439; 84443; 84481 ==